=== PATIENT | female | born 1955 | race Caucasian/White ===

== ENCOUNTER 2025-01-12 12:24 | Inpatient (IN) | payer OTHER, SELFPAY ==
[2025-01-11 11:05] VITALS: BP 105/72
[2025-01-11 11:56] VITALS: BMI 21.3
--- NOTE | 2025-01-11 12:11 | ED.MUSCINJ ---
HPI-Injury
<Garry Cosby PA-C - Last Filed: 01/11/25 15:34>
General
Chief Complaint: Musculo-Skeletal Complaint
Source: patient
Exam Limitations: none
Time Seen by Provider: 01/11/25 11:52
History of Present Illness-Injury
Initial Injury comments:
69-year-old female presents with severe pain to the left side of her neck that radiates up the left side of her head into the front of her head. This has been going on getting worse over the past 2 weeks. She does see a pain management doctor for
her lower back. She is on morphine sulfate 15 mg every 8 hours. This is not helping her pain. She is having trouble swallowing and eating because of the pain. There is no associated vision change or dizziness. The pain is made worse when she
moves her head to the left and to the right. She denies a rash or fever. No known injury. No other complaints
Phy Exam
<Garry Cosby PA-C - Last Filed: 01/11/25 15:34>
Physical Exam
Physical Exam:
General: Well-appearing but uncomfortable appearin female no acute respiratory distress
HEENT normal cephalic pupils equal round reactive to light TMs normal
Heart: Regular rate and rhythm
Lungs: Clear no wheeze
Musculoskeletal exam: She is tender over the midline of the cervical spine as well as to the left paraspinous area. She has decreased range of motion to the neck especially with lateral rotation to the left
Skin is warm no rash
Injury Course
<Garry Cosby PA-C - Last Filed: 01/11/25 15:34>
Orders/Labs/Results
Orders:
Orders
01/11/25 12:12
Dexamethasone Sod Phosphate [Decadron] 10 mg IV NOW STA
diazePAM [Valium Injection] 5 mg IV NOW STA
01/11/25 12:17
Comprehensive Metabolic Panel Urgent
10/14/25 12:18
CRP [C-Reactive Protein] Urgent
Complete Blood Count/With Diff Urgent
Sed Rate [Erythrocyte Sed Rate] Urgent
01/11/25 13:48
HYDROmorphone [Dilaudid] 1 mg IV NOW STA
01/11/25 13:57
CT Cervical Spine W/ Iv Contra Urgent
Comment:
Reason For Exam: neck pain, elevated inflammatory markers, ?infecti
Abnormal Lab Results
01/11/25 01/11/25
12:17 12:18
WBC 11.8 H 10^3/uL
(4.8-10.8)
MCH 31.3 H pg
(27.0-31.0)
Plt Count 497 H 10^3/uL
(130-400)
Abs Immat Gran (auto) 0.1 H 10^3/uL
(0-0.05)
Absolute Neuts (auto) 8.3 H 10^3/uL
(1.4-6.5)
Absolute Monos (auto) 0.9 H 10^3/uL
(0.1-0.6)
Lymphocytes % 20.4 L %
(20.5-51.1)
ESR 82 H mm/hour
(0-20)
Sodium 134 L mmol/L
(135-145)
Glucose 139 H mg/dl
(70-99)
AST 41 H U/L
(14-36)
ALT 54 H U/L
(0-35)
Alkaline Phosphatase 360 H U/L
(38-126)
C-Reactive Protein 130.40 H mg/L
(0.0-10.00)
01/11/25 12:18
01/11/25 12:17
<Ricardo Ramsay MD - Last Filed: 01/11/25 15:42>
Orders/Labs/Results
Orders:
Orders
01/11/25 12:12
Dexamethasone Sod Phosphate [Decadron] 10 mg IV NOW STA
diazePAM [Valium Injection] 5 mg IV NOW STA
01/11/25 12:17
Comprehensive Metabolic Panel Urgent
01/11/25 12:18
CRP [C-Reactive Protein] Urgent
Complete Blood Count/With Diff Urgent
Sed Rate [Erythrocyte Sed Rate] Urgent
01/11/25 13:48
HYDROmorphone [Dilaudid] 1 mg IV NOW STA
01/11/25 13:57
CT Cervical Spine W/ Iv Contra Urgent
Comment:
Reason For Exam: neck pain, elevated inflammatory markers, ?infecti
Abnormal Lab Results
01/11/25 01/11/25
12:17 12:18
WBC 11.8 H 10^3/uL
(4.8-10.8)
MCH 31.3 H pg
(27.0-31.0)
Plt Count 497 H 10^3/uL
(130-400)
Abs Immat Gran (auto) 0.1 H 10^3/uL
(0-0.05)
Absolute Neuts (auto) 8.3 H 10^3/uL
(1.4-6.5)
Absolute Monos (auto) 0.9 H 10^3/uL
(0.1-0.6)
Lymphocytes % 20.4 L %
(20.5-51.1)
ESR 82 H mm/hour
(0-20)
Sodium 134 L mmol/L
(135-145)
Glucose 139 H mg/dl
(70-99)
AST 41 H U/L
(14-36)
ALT 54 H U/L
(0-35)
Alkaline Phosphatase 360 H U/L
(38-126)
C-Reactive Protein 130.40 H mg/L
(0.0-10.00)
01/11/25 12:18
01/11/25 12:17
<Garry Cosby PA-C - Last Filed: 01/11/25 15:34>
MDM/Problems Addressed
Differential Diagnosis Includes:
Neck pain radiating to the left side of the head. Consider radiculopathy. No rashes suggest shingles. Consider occipital neuralgia or temporal arteritis. Will check inflammatory markers basic labs and CT.
<Garry Cosby PA-C - Last Filed: 01/11/25 15:34>
*Pulse Oximetry
SaO2: 100
Oxygen Mode of Delivery: Room air
Patient hypoxic: no
*Critical Care Note
Total Time (30-74mins, 75-104mins- exclusive of procedures): Not Applicable
<Garry Cosby PA-C - Last Filed: 01/11/25 15:34>
Update Note
Update Note:
Pain is unrelenting here. Only mild improvement after medication. CT of cervical spine with IV contrast was ordered which is negative for deep space infection. Cannot ascertain discitis versus osteomyelitis on CT. Inflammatory markers including
sed rate of 82 and CRP of 130 concerning. Discussed with emergency room attending. Will admit to hospital for further treatment and evaluate
ED Attending Note
<Garry Cosby PA-C - Last Filed: 01/11/25 15:34>
-
Portions of this chart may have been created with voice recognition software.� Occasional wrong word or��sound alike� substitutions may have occurred due to the inherent limitations of voice recognition software.
<Ricardo Ramsay MD - Last Filed: 01/11/25 15:42>
ED Attending Note
Patient seen and examined by attending physician: Yes
I performed the substantive portion of visit, reviewed & personally made and approve the management plan that is documented in note by myself or BRIGIDA.: Yes
ED Attending Note:
69-year-old female 2 weeks of left posterior neck pain. Started antibiotics for enlarged lymph nodes. No distal numbness tingling or weakness. Some pain with swallowing. Pain does radiate up to the back of the neck.
On exam patient is nontoxic but appears uncomfortable. Stable vital signs. Tenderness of the left posterior paracervical area. No spinal tenderness. No swelling. Decreased lateral motion. TMs clear. Pharynx clear. No drooling or stridor.
Change Release Manager are normal. Interosseous normal. Flexion extension of the wrist normal.
Patient not describing any bowel or bladder issues or lower extremity issues.
CT cervical spine with contrast unremarkable. Significant inflammatory elevation. Patient warrants admission for pain management further workup. Would have to consider discitis, epidural abscess, other inflammatory issue. However neurologically
intact at this time
Discharge Plan
Departure
Prescriptions:
No Action
morphine 15 mg Tablet
15 mg PO BID
Referrals:
Dwayne Zimmerman MD [Family Provider, Internal Medicine]
Interventions
Interventions:
*Risk Screen - Suicide Last Done: 01/11/25 11:05
*General Assessment Last Done: 01/11/25 11:05
ED-Musculoskeletal Assessment Last Done: 01/11/25 11:56
Discharge Date and Time
Print Language: PORTUGUESE
[2025-01-11] MEDS: VALIUM INJECTION 5 MG IV (12:18)
[2025-01-11] MEDS: DECADRON 10 MG IV (12:18)
[2025-01-11 12:42] LABS: Hematocrit 40.8 % (37.0-47.0); Hemoglobin 14.3 g/dL (12.0-16.0); Mean Corp Hgb Conc. 35.0 g/dL (33.0-37.0); Mean Corpuscular Volume 89.3 fL (81.0-99.0); Nucleated Red Blood Cells % 0 %; Platelet Count 497 10^3/uL (130-400); Red Cell Dist. Width 11.9 % (11.5-14.5)
[2025-01-11 13:07] LABS: ALT (SGPT) 54 U/L (0-35); AST (SGOT) 41 U/L (14-36); Albumin 4.6 g/dl (3.5-5.0); Alkaline Phosphatase 360 U/L (38-126); Blood Urea Nitrogen 12 mg/dl (7-17); Calcium 9.6 mg/dl (8.4-10.2); Carbon Dioxide 27 mmol/L (22-30); Chloride 98 mmol/L (98-107); Estimated Creatinine Clearance 67 ml/min; Glucose 139 mg/dl (70-99); Potassium 4.0 mmol/L (3.5-5.1); Sodium 134 mmol/L (135-145); Total Protein 7.9 g/dl (6.3-8.2); eGFR > 60.00
[2025-01-11 13:30] LABS: C-Reactive Protein 130.40 mg/L (0.0-10.00)
[2025-01-11 13:50] VITALS: BP 134/46
[2025-01-11] MEDS: DILAUDID 1 MG IV (13:53)
--- NOTE | 2025-01-11 15:36 | HPS.HSE ---
Family Physician
-
Family Physician: Dwayne Zimmerman
Chief Complaint
-
severe neck pain radiating up to head
History of Present Illness
Patient is a 69-year-old female with past medical history significant for hypertension and chronic back pain who presented to [facility] ED for evaluation of severe neck pain radiating up to head. Patient reports pain starts on posterior and left side of
neck and radiates up through entire head. Patient reports is is sharp, stabbing and is constant. Pain has been present with worsening over the past two weeks. When it first started she went to see primary care provider who ordered a Z-pack that she
finished on Friday01/07/2025. She does report swollen glands on left side of neck with low grad fevers with T max 99.2. She denies any numbness, tingling, radiating down, cough or shortness of breath.
Medical History
Past Medical History
Past Medical History: Reports Other
Additional Past Medical History:
hypertension
chronic back pain
Past Surgical History: Reports Other
Additional Past Surgical History:
tonsillectomy
cholecystecotmy
Social History
Tobacco: Former Smoker (stopped 2 weeks ago, was smokin 0.5 pack per day)
Alcohol: None
Drug: None
Family History
Family History: Other (Father: CAD; Mother: DM)
Allergies / Home Medications
Allergies reflects when Allergies were last updated in [facility].
Home Medications with original date entered in [facility]
Allergy/Medication List:
Allergies
Allergy/AdvReac Type Severity Reaction Status Date / Time
NSAIDS (Non-Steroidal Allergy Unknown Verified 01/11/25 11:06
Anti-Inflamma
Sulfa (Sulfonamide Allergy Unknown Verified 01/11/25 11:06
Antibiotics)
Home Medications
acetaminophen 325 mg tablet (Tylenol) 650 mg PO TID mild pain 01/11/25
gabapentin 100 mg capsule 200 mg PO HS Neurological Condition 01/11/25
morphine 15 mg immediate release tablet 15 mg PO TID serve pain 01/11/25
propranolol 10 mg tablet 10 mg PO QID 01/11/25
Review of Systems
-
History Source: Patient
Constitutional: Reports Fever; Denies Chills
EENT: Reports Other (severe stabbing pain left and posterior neck radiating up to entire head ); Denies Sore Throat
Respiratory: Denies Cough, Hemoptysis or Trouble Breathing
Cardiac: Denies Chest Pain, Diaphoresis, Palpitations or Syncope
Abdomen/GI: Denies Abdominal Pain, Nausea, Vomiting or Diarrhea
: Denies Dysuria, Frequency, Incontinence, Difficulty Voiding or Urgency
Musculoskeletal: Denies Joint Pain
Skin: Denies Itching
Neurological: Reports Headache; Denies Dizzy, Weakness or Numbness
Endocrine: Denies Polyuria or Polydipsia
Hematologic/Lymphatic: Denies Bleeding
Physical Exam
Vital Signs
Vital Signs
Temp Pulse Resp BP Pulse Ox
98.9 F 80 18 134/46 99
01/11/25 11:05 01/11/25 13:50 01/11/25 13:50 01/11/25 13:50 01/11/25 13:50
Physical Exam
General: Well Developed, Well Nourished and Conversant
HEENT: NormoCephalic, Moist mucous membranes, PERRLA, Nose Appears Normal and Ears Appear Normal
Respiratory: Clear and Non Labored Respirations; No Wheezes, Rales, Rhonchi or Crackles
Cardiac: S1/S2 and Regular Rhythm; No Murmur, Rub or Gallop
GI: Soft, Non Tender, Non Distended and Normal Bowel Sounds
Musculoskeletal: No Clubbing, No Cyanosis, No Edema and Other (She is tender over the midline of the cervical spine as well as to the left paraspinous area. She has decreased range of motion to the neck especially with lateral rotation to the left)
Skin: Warm and IV/Catheter Site
Neuro: Awake and AO x 3
Psych: Calm and Intact Judgment/Insight
Laboratory Results
-
01/11/25 12:18
01/11/25 12:17
Laboratory Results
Total Bilirubin 0.5 mg/dl (0.2-1.3) 01/11/25 12:17
AST 41 U/L (14-36) H 01/11/25 12:17
ALT 54 U/L (0-35) H 01/11/25 12:17
Alkaline Phosphatase 360 U/L (38-126) H 01/11/25 12:17
Data Reviewed
-
CT Scan: Report Reviewed by me (C-Spine: No findings to suggest well-formed abnormal focal fluid collection about the paracervical spine soft tissues bilaterally. Evaluation for disc herniation markedly limited with this imaging modality,
especially without intrathecal contrast. Evaluation for discitis markedly limited with this)
Lab Data: Labs Reviewed by me (WBC 11.8, Na+ 134, AST 41, ALT 54, Alk Phos 360, CRP 130.40)
Impression/Plan
-
IMPRESSION/PLAN:
#severe posterior and left-sided neck/head pain 2/2 discitis vs. osteomyelitis vs. abscess vs. injury
WBC 11.8, Na+ 134, AST 41, ALT 54, Alk Phos 360, CRP 130.40
C-Spine CT: No findings to suggest well-formed abnormal focal fluid collection about the paracervical spine soft tissues bilaterally.
Evaluation for disc herniation markedly limited with this imaging modality, especially without intrathecal contrast.
Evaluation for discitis markedly limited with this imaging modality. Evaluation for epidural abscess cannot be assessed with this imaging modality. MRI with contrast would be necessary.
- Admit to med/surg
- MRI c-spine tomorrow
- continue home pain regimen
- Toradol 15mg q8
- prednisone 40mg daily
- Protonix 40mg daily
#chronic pain
- continue acetaminophen, gabapentin and morphine
#mitral valve prolapse
- continue propranolol
Code status: full code
DVT prophylaxis: lovenox sq
--- NOTE | 2025-01-11 16:54 | CM ---
Chart Reviewed and spoke with patient and at bedside
HODGES reviewed and signed at 16:45
Lives in a 2 story home with . 2 [address] with 1st floor bath room
Has a walker at home but per she is independent and walks without assistive device.
PCP Dr. Dwayne Spencer
Has RX plan
Pharmacy [facility] in [place]
no hx of VN nor SNF
CM will continue to follow for any dcp needs
--- NOTE | 2025-01-11 16:55 | W.PN.UPDATE ---
Update Note
Progress Note Update
I saw and examined the patient.
The SOLUTIONS ENGINEER's note was reviewed and I agree with the note.
Patient is a 69-year-old female with past medical history of lumbar spinal degenerative joint disease, chronic pain and narcotic dependence, essential hypertension, neuropathy came to ER with ongoing neck pain with radiation to scalp for 2 weeks.
Patient was having slowly progressive symptoms over 2 weeks and was seen by primary care physician. Patient was having some discomfort in submandibular glands? And was provided Z-Romero. Patient did not have any improvement and came for further
evaluation in ER. At the time of visit patient somewhat distressed due to ongoing continuous pain. Patient has loss of appetite although not attributing it to nausea. Mainly patient having discomfort on opening the jaw sometime as well.
GEN: aox3
HEENT: moist mucus membrane, PERRLA/EOMI, no thryomegaly or LNpathy
Chest: Clear to auscultation
Heart: N s1/s2, RRR, no rub/mrumur/gallops
Abd: N BS, soft, nontender, nondistended, no organomegaly
Neuro: No motor or sensory deficits, bilateral symetric DTR
Ext: No cyanosis, Clubbing, edema
Cervical radiculopathy
Cervicogenic headache
- Patient describing pain radiating from posterior neck and going up on occipital/vertex area
- Patient have spinal degenerative joint disease although no history of major neck issues
- CTA neck in ER did not show any major structural issue
- An MRI C-spine has been ordered to rule out any spinal stenosis/foraminal stenosis
- Patient got IV Decadron 10 mg in the ER, maintain on prednisone 40 mg daily
- Patient already on morphine 15 mg 3 times daily maintain on
- As needed IV Dilaudid for breakthrough pain
- Maintain on IV Toradol 50 mg every 8 hour with Protonix for GI prophylaxis
Neuropathy
- Continue nighttime gabapentin
Essential hypertension
- Maintained on propranolol 10 mg 4 times daily
DVT prophylaxis -SCD
Full code
Total time spent : mins
I personally saw and examined the patient.
I have reviewed all diagnostic interpretations and treatment plans as written.
Time includes patient management by me, time spent at the patients bedside, time to review lab and imaging results, discussing patient care, documentation in the medical record, and time spent with the family or caregiver and discussing care plan
with RN/Consultants.
[2025-01-11] MEDS: TORADOL 15 MG IV (17:09)
[2025-01-11 18:50] VITALS: BP 114/62; BMI 20.8
[2025-01-11] MEDS: NSS 1000 IV (19:57)
[2025-01-11] MEDS: LOVENOX 40 MG SC (19:58)
[2025-01-11] MEDS: INDERAL 10 MG PO (19:58)
[2025-01-11] MEDS: DILAUDID 0.5 MG IV (21:13)
[2025-01-11] MEDS: NEURONTIN 200 MG PO (21:13)
[2025-01-11] MEDS: INDERAL PO (23:05)
[2025-01-11 23:16] VITALS: BP 105/56
[2025-01-12] MEDS: TORADOL IV (02:00)
--- NOTE | 2025-01-12 06:23 | W.PN.UPDATE ---
Update Note
Progress Note Update
Patient refusing IV ketorolac and requesting IV Dilaudid.
Ketorolac d/c'd. small dose of IV Dilaudid ordered. PO morphine encouraged.
[2025-01-12] MEDS: MORPHINE SULFATE 15 MG PO ×3 (06:25→21:14)
[2025-01-12 07:00] VITALS: BP 105/57
[2025-01-12 08:03] LABS: Hematocrit 32.4 % (37.0-47.0); Hemoglobin 11.7 g/dL (12.0-16.0); Mean Corp Hgb Conc. 36.1 g/dL (33.0-37.0); Mean Corpuscular Volume 89.3 fL (81.0-99.0); Platelet Count 405 10^3/uL (130-400); Red Cell Dist. Width 11.8 % (11.5-14.5)
[2025-01-12 08:36] LABS: Blood Urea Nitrogen 13 mg/dl (7-17); Calcium 8.7 mg/dl (8.4-10.2); Carbon Dioxide 24 mmol/L (22-30); Chloride 107 mmol/L (98-107); Estimated Creatinine Clearance 67 ml/min; Glucose 119 mg/dl (70-99); Potassium 4.9 mmol/L (3.5-5.1); Sodium 135 mmol/L (135-145); eGFR > 60.00
[2025-01-12] MEDS: INDERAL 10 MG PO ×3 (08:37→18:32)
[2025-01-12] MEDS: DELTASONE 40 MG PO (08:37)
[2025-01-12] MEDS: PROTONIX 40 MG PO (08:38)
[2025-01-12] MEDS: NSS 1000 IV (08:45)
[2025-01-12] MEDS: DILAUDID 0.25 MG IV ×4 (09:14→19:14)
--- NOTE | 2025-01-12 12:24 | W.PN.HOSP.TC ---
Today's Communication/Plan
-
maintain on current meds
added IV prn dialudid
await MRI c spine
Assessment / Plan
Assessment / Plan
CT c spine
No findings to suggest well-formed abnormal focal fluid collection about the paracervical spine soft tissues bilaterally.
Evaluation for disc herniation markedly limited with this imaging modality, especially without intrathecal contrast.
Evaluation for discitis markedly limited with this imaging modality. Evaluation for epidural abscess cannot be assessed with this imaging modality. MRI with contrast would be necessary.
Cervical radiculopathy
Cervicogenic headache
- Patient describing pain radiating from posterior neck and going up on occipital/vertex area
- Patient have spinal degenerative joint disease although no history of major neck issues
- CTA neck in ER did not show any major structural issue
- An MRI C-spine has been ordered to rule out any spinal stenosis/foraminal stenosis
- Patient got IV Decadron 10 mg in the ER, maintain on prednisone 40 mg daily
- Patient already on morphine 15 mg 3 times daily maintain on
- As needed IV Dilaudid for breakthrough pain
- Maintain on IV Toradol 50 mg every 8 hour with Protonix for GI prophylaxis
Neuropathy
- Continue nighttime gabapentin
Essential hypertension
- Maintained on propranolol 10 mg 4 times daily
DVT prophylaxis -SCD
Full code
Anticipated Discharge: 24 - 48 hours
Subjective/Interval History
-
Date of Service: January 12, 2025
Patient continues to have significant pain in neck radiating to scalp
No upper or lower extremity neurological symptoms
Able to tolerate pain medication without excessive sedation/nausea vomiting episode
Objective Data
-
Labs:
Laboratory Results
01/12/25
07:49
WBC 12.0 H
Hgb 11.7 L
Hct 32.4 L
Plt Count 405 H
Sodium 135
Potassium 4.9
Chloride 107
Carbon Dioxide 24
BUN 13
Creatinine 0.4 L
Glucose 119 H
Calcium 8.7
Vital Signs:
Vital Signs
Temp Pulse Resp BP Pulse Ox
98 F 60 12 105/57 96
01/12/25 07:00 01/12/25 07:00 01/12/25 07:00 01/12/25 07:00 01/12/25 07:00
Review of Systems
-
EENT: Reports Other (sev neck pain)
Respiratory: Reports No Symptoms
Cardiac: Reports No Symptoms
Abdomen/GI: Reports No Symptoms
Physical Exam
-
General: No Apparent Distress and Comfortable
HEENT: Negative Oxygen
Neuro: Awake, Alert, Oriented, No Motor Deficits and Nonfocal/Grossly Intact
Psych: Calm
[2025-01-12 15:00] VITALS: BP 126/74
--- NOTE | 2025-01-12 16:05 | CM ---
Reviewed chart. Met with pt and spouse. Pt is is obvious pain. Nurse made aware. Pain management is active. Pt is waiting to have MRI of C-spine. One MRI is not operational at this time so testing will be delayed. Pt and made aware.
Plan: Home with no needs
[2025-01-12] MEDS: LOVENOX 40 MG SC (18:32)
[2025-01-12] MEDS: NEURONTIN 200 MG PO (21:14)
[2025-01-12] MEDS: INDERAL PO (23:00)
[2025-01-12 23:17] VITALS: BP 101/43
[2025-01-13] MEDS: DILAUDID 0.25 MG IV ×6 (02:20→22:13)
[2025-01-13] MEDS: VALIUM INJECTION 5 MG IV (02:49)
[2025-01-13 07:30] VITALS: BP 148/66
[2025-01-13] MEDS: DELTASONE 40 MG PO (08:03)
[2025-01-13] MEDS: PROTONIX 40 MG PO (08:03)
[2025-01-13] MEDS: MORPHINE SULFATE 15 MG PO ×3 (08:04→21:01)
[2025-01-13] MEDS: INDERAL 10 MG PO ×4 (08:05→21:01)
[2025-01-13] MEDS: LIDOCAINE 4% PATCH 1 PATCH TOPICAL (12:28)
--- NOTE | 2025-01-13 14:51 | W.PN.HOSP.TC ---
Today's Communication/Plan
-
continue symptomatic care
Assessment / Plan
Assessment / Plan
CT c spine
No findings to suggest well-formed abnormal focal fluid collection about the paracervical spine soft tissues bilaterally.
Evaluation for disc herniation markedly limited with this imaging modality, especially without intrathecal contrast.
Evaluation for discitis markedly limited with this imaging modality. Evaluation for epidural abscess cannot be assessed with this imaging modality. MRI with contrast would be necessary.
MRI C spine
Multilevel mild degenerative changes of the cervical spine most pronounced at the C6/C7 level where there is a right subarticular disc extrusion. There is no significant spinal canal or neuroforaminal narrowing.
Small focus of edema within the left paraspinal musculature at the C1-C2 level which may represent a mild muscular strain.
Cervical radiculopathy
Cervicogenic headache
- Patient describing pain radiating from posterior neck and going up on occipital/vertex area
- Patient have spinal degenerative joint disease although no history of major neck issues
- CTA neck in ER did not show any major structural issue
- MRI C-spine report as above.
- Patient got IV Decadron 10 mg in the ER, maintain on prednisone 40 mg daily
- Patient already on morphine 15 mg 3 times daily maintain on
- As needed IV Dilaudid for breakthrough pain
- Maintain on IV Toradol 50 mg every 8 hour with Protonix for GI prophylaxis
- Heating pad and lidocaine patch added
Neuropathy
- Continue nighttime gabapentin
Essential hypertension
- Maintained on propranolol 10 mg 4 times daily
DVT prophylaxis -SCD
Full code
Patient continued to require IV pain medication. Continues to have significant neck pain.
Total time spent : 52 mins
Anticipated Discharge: 24 - 48 hours
Subjective/Interval History
-
Date of Service: January 13, 2025
Continues to have neck pain
Complaint some neck stiffness in the morning
No abdominal pain/nausea/constipation with narcotics use
Objective Data
-
Vital Signs:
Vital Signs
Temp Pulse Resp BP Pulse Ox
98.0 F 75 18 121/75 100
01/13/25 07:30 01/13/25 12:37 01/13/25 07:30 01/13/25 12:37 01/13/25 13:30
Review of Systems
-
Respiratory: Reports No Symptoms
Cardiac: Reports No Symptoms
Abdomen/GI: Reports No Symptoms
Physical Exam
-
General: No Apparent Distress and Comfortable
HEENT: Negative Oxygen
Neuro: Awake, Alert, Oriented, No Motor Deficits and Nonfocal/Grossly Intact
Psych: Calm
[2025-01-13 15:25] VITALS: BP 141/61
--- NOTE | 2025-01-13 17:40 | CM ---
Chart reviewed. Pt continues to require IV medication for cervical neck pain control
Plan: Home no needs
[2025-01-13] MEDS: LOVENOX 40 MG SC (17:55)
[2025-01-13] MEDS: NEURONTIN 200 MG PO (21:01)
[2025-01-13] MEDS: REMOVE LIDOCAINE PATCH 1 PATCH REMOVE (21:03)
[2025-01-13 23:39] VITALS: BP 107/48
[2025-01-14] MEDS: DILAUDID 0.25 MG IV ×3 (01:26→06:31)
[2025-01-14 07:50] VITALS: BP 144/60
[2025-01-14] MEDS: INDERAL 10 MG PO ×4 (07:54→21:07)
[2025-01-14] MEDS: PROTONIX 40 MG PO (07:54)
[2025-01-14] MEDS: DELTASONE 40 MG PO (07:54)
[2025-01-14] MEDS: LIDOCAINE 4% PATCH 1 PATCH TOPICAL (07:54)
[2025-01-14] MEDS: MORPHINE SULFATE 15 MG PO ×3 (07:55→21:06)
[2025-01-14] MEDS: MIRALAX 17 GRAMS PO (11:21)
[2025-01-14] MEDS: ROXICODONE 2.5 MG PO ×3 (11:22→23:08)
--- NOTE | 2025-01-14 12:21 | W.PN.HOSP.TC ---
Today's Communication/Plan
-
Escalating oral pain medication regimen
Dischargeable once pain controlled with oral meds
Assessment / Plan
Assessment / Plan
CT c spine
No findings to suggest well-formed abnormal focal fluid collection about the paracervical spine soft tissues bilaterally.
Evaluation for disc herniation markedly limited with this imaging modality, especially without intrathecal contrast.
Evaluation for discitis markedly limited with this imaging modality. Evaluation for epidural abscess cannot be assessed with this imaging modality. MRI with contrast would be necessary.
MRI C spine
Multilevel mild degenerative changes of the cervical spine most pronounced at the C6/C7 level where there is a right subarticular disc extrusion. There is no significant spinal canal or neuroforaminal narrowing.
Small focus of edema within the left paraspinal musculature at the C1-C2 level which may represent a mild muscular strain.
Cervical radiculopathy
Cervicogenic headache
- Patient describing pain radiating from posterior neck and going up on occipital/vertex area
- Patient have spinal degenerative joint disease although no history of major neck issues
- CTA neck in ER did not show any major structural issue
- MRI C-spine report as above.
- Patient got IV Decadron 10 mg in the ER, maintain on prednisone 40 mg daily
- Patient already on morphine 15 mg 3 times daily maintain on
- As needed IV Dilaudid for breakthrough pain
- Maintain on IV Toradol 50 mg every 8 hour with Protonix for GI prophylaxis
- Heating pad and lidocaine patch added
- Oxycodone 2-1/2 mg every 4 hours as needed ordered with goal of limiting IV Dilaudid use
Neuropathy
- Continue nighttime gabapentin
Essential hypertension
- Maintained on propranolol 10 mg 4 times daily
DVT prophylaxis -SCD
Full code
Patient continued to require IV pain medication. Continues to have significant neck pain.
Anticipated Discharge: Within 24 hours
Subjective/Interval History
-
Date of Service: January 14, 2025
Continues to have neck pain going up the scalp
No other issues reported
Objective Data
-
Vital Signs:
Vital Signs
Temp Pulse Resp BP Pulse Ox
97.6 F 70 18 144/60 95
01/14/25 07:50 01/14/25 07:54 01/14/25 07:50 01/14/25 07:54 01/14/25 07:50
I&O
01/13/25 01/14/25 01/15/25
06:59 06:59 06:59
Intake Total 240 / 240
Balance 240 / 240
Review of Systems
-
Respiratory: Reports No Symptoms
Cardiac: Reports No Symptoms
Abdomen/GI: Reports No Symptoms
Physical Exam
-
General: No Apparent Distress and Comfortable
HEENT: Negative Oxygen
Neuro: Awake, Alert, Oriented, No Motor Deficits and Nonfocal/Grossly Intact
Psych: Calm
[2025-01-14 15:27] VITALS: BP 113/67
--- NOTE | 2025-01-14 15:42 | CM ---
Addendum entered by Leni Garcia 01/14/25 15:46:
IMM given to patient and placed on chart. Pt will go home via car with spouse tomorrow,
Original Note:
REviewed chart. Met with pt and spouse. Pain management ongoing. Have added Oxycodone to help reduce the need for diluaded. Pt for tentative DC tomorrow
Plan: Home no needs
[2025-01-14] MEDS: LOVENOX 40 MG SC (17:08)
[2025-01-14] MEDS: REMOVE LIDOCAINE PATCH 1 PATCH REMOVE (21:06)
[2025-01-14] MEDS: NEURONTIN 200 MG PO (21:07)
[2025-01-14 23:27] VITALS: BP 157/72
[2025-01-15] MEDS: ROXICODONE 2.5 MG PO ×2 (06:04→11:34)
[2025-01-15] MEDS: TYLENOL 650 MG PO (06:09)
[2025-01-15 07:40] VITALS: BP 124/62
[2025-01-15] MEDS: INDERAL 10 MG PO (07:46)
[2025-01-15] MEDS: MORPHINE SULFATE 15 MG PO (07:46)
[2025-01-15] MEDS: MIRALAX PO (07:46)
[2025-01-15] MEDS: DELTASONE 40 MG PO (07:46)
[2025-01-15] MEDS: LIDOCAINE 4% PATCH 1 PATCH TOPICAL (07:46)
[2025-01-15] MEDS: PROTONIX 40 MG PO (07:46)
--- NOTE | 2025-01-15 15:39 | W.DCSUMMARY ---
Discharge Summary
Discharge Data
Date of Admission: 01/12/25
Date of Discharge: 01/15/25
-
Pending Results: No
Hospital Course
Discharging Physician : Dr Van Chávez
Disposition : To home
Primary care physician : Dr Dwayne Zimmerman
Principal Discharge diagnosis :
Cervical radiculopathy
Cervical paraspinal muscle strain
Chronic Discharge diagnosis :
Chronic pain and narcotic dependence
Spinal degenerative joint disease
Essential hypertension
Physical examination:
HEENT: Neck pain on movement,
Abd: N BS, soft, nontender, nondistended,
Neuro: No motor or sensory deficits, aox3
Ext: No edema
Hospital Course :
Patient is 69-year-old female with admission past medical history came to ER with new onset of neck pain which was going up the occipital scalp and in the vertex area. Patient denied of any recent fall/trauma. Does have history of chronic pain and
narcotic dependence which patient uses mainly for lumbar spinal issues. Patient was provided symptomatic care without much help. A CT C-spine done in ER did not show any acute issues. Patient was admitted to hospital for need of IV pain
medication. Patient was started on IV Toradol/Dilaudid with supportive therapy. Patient was continued on home dose of morphine. A follow-up MRI C-spine was done which showed signs of muscle strain/inflammation in paraspinal muscles at base of
skull. No overt spinal canal issues. Patient had slow recovery of symptoms over next 72 hours. After improvement patient was transition to short course of oral oxycodone on top of regular morphine dose. Patient provided instruction to follow-up
with orthopedic surgeon in the office as may benefit with local tender point injection for better symptom control.
Important imaging findings :
None
Procedure findings :
None
Discharge Plan
-
Patient Disposition: Home (Routine Discharge)
Discharge Diagnosis/Procedures: Cervicogenic headache, Neck pain
Condition: Fair
Diet: Regular
Activity: As tolerated
Driving Restrictions: No driving for 24 hours
Bathing Restrictions: OK to Shower
Referrals:
[facility] [Provider Group, Orthopedics]
Referral Note: Please call the office for new patient appointment for severe neck pain
Dwayne Zimmerman MD [Family Provider, Internal Medicine] - in one week
Prescriptions:
New
lidocaine 4 % Adhesive Patch,Medicated
1 patch topical DAILY Qty: 10 0RF
oxycodone 5 mg tablet
5 mg PO Q6H PRN (Reason: Sev pain) Qty: 15 0RF
Rx Instructions:
Take half table for mod pain
ibuprofen 600 mg tablet
600 mg PO TID Qty: 10 0RF
Rx Instructions:
DO NOT TAKE MORE THEN 3 DAYS
prednisone 20 mg tablet
40 mg PO DAILY Qty: 6 0RF
Continued
morphine 15 mg Tablet
15 mg PO TID
acetaminophen [Tylenol] 325 mg Tablet
650 mg PO TID
propranolol 10 mg Tablet
10 mg PO QID
gabapentin 100 mg Capsule
200 mg PO HS
Discharge Orders:
Discharge Patient (As Directed); Ordered 01/15/25
Ordered By: Van Chávez
Discharge Date and Time
Discharge Date/Time: 01/15/25 12:00
Print Language: SAMI
== END 2025-01-15 12:00 | disposition home or self-care (01) | DRG 552 ==
LOC: 4 EAST ACU 12:24
PROVIDERS: Nurse Practitioner Family; Physician Assistant; ADMITTING PHYSICIAN Hospitalist; EMERGENCY PHYSICIAN Emergency Medicine; FAMILY PHYSICIAN Internal Medicine
DX: M50.123 Cervical disc disorder at C6-C7 level with radiculopathy (principal); F11.20 Opioid dependence, uncomplicated; S16.1XXA Strain of muscle, fascia and tendon at neck level, initial encounter; G44.86 Cervicogenic headache; I34.1 Nonrheumatic mitral (valve) prolapse; X58.XXXA Exposure to other specified factors, initial encounter; I10 Essential (primary) hypertension; G62.9 Polyneuropathy, unspecified; G89.29 Other chronic pain; Z87.891 Personal history of nicotine dependence; Z79.899 Other long term (current) drug therapy
CPT/HCPCS: 72126; 72141; 80048; 80053; 85025; 85027; 85652; 86140; 96374; 96375; 99284; 99406

== ENCOUNTER 2025-01-25 14:57 | Inpatient (IN) | payer OTHER, SELFPAY ==
[2025-01-22] VITALS (7 sets, daily range): BP systolic 100–152; BP diastolic 52–110
--- NOTE | 2025-01-22 14:49 | ED.GENMED ---
History of Present Illness
<Sushma Aguiar STANDARDS ENGINEER - Last Filed: 01/23/25 20:09>
General
Chief Complaint: Headache
Source: patient and spouse
Exam Limitations: none
Time Seen by Provider: 01/22/25 14:11
Nursing documentation reviewed up to this point in time: agreed with
History of Present Illness
History of Present Illness:
69-year-old female with history of chronic low back pain followed by pain and spine, takes morphine which she has done for the last 12 years or so, also gabapentin 200 mg at bedtime. She has not follow-up appointment on 02/01 with her pain
management people. She is presenting with severe bilateral neck pain pointing to the base of her skull bilaterally or just behind the ears. Than a recent admission from 01/11 to she had CAT scan and MRI of the neck and 18 for severe neck pain.
She had CAT scan and MRI of the neck and C-spine and was diagnosed with cervical radiculopathy and cervical paraspinal muscle strain. She was discharged on lidocaine 4% patch, oxycodone 5 mg #15 tabs, prednisone 20 mg to take 40 mg a day for 3
days. She states these gave her little relief and ever since her discharge she has been in the same significant pain. She is presently moaning and crying in pain saying the pain goes from bilateral paraspinal muscles at the base of her skull, up
and around the top of her head, in her ears and 'even my face hurts.' She states she cannot deal with this pain anymore and she just wants to . She denies fever or chills. Denies N/V. She states this is the exact same pain she came in with on
previous admission
Past History
<Sushma Aguiar STANDARDS ENGINEER - Last Filed: 01/23/25 20:09>
Past History
ED Past Medical History: Other (chronic low back pain followed by [facility])
ED Past Surgical History: Cholecystectomy and Tonsilectomy
Social History
Personal:
Living: with family
Review of Systems
<Sushma Aguiar, STANDARDS ENGINEER - Last Filed: 01/23/25 20:09>
Review of Systems
Allergies reviewed?: Yes
All Other Systems: ROS reviewed and negative except as documented in HPI and ROS
Constitutional: Denies fever
EENT: Denies sore throat
Respiratory: Denies trouble breathing
Cardiac: Denies chest pain
ABD/GI: Denies abdominal pain, nausea or vomiting
: Denies dysuria or difficulty voiding
Musculoskeletal: Reports neck pain
Skin: Reports no symptoms
Neurological: Reports headache; Denies dizzy, weakness or numbness
Phy Exam
<Sushma Aguiar, STANDARDS ENGINEER - Last Filed: 01/23/25 20:09>
Physical Exam
Physical Exam:
GENERAL: Crying and moaning from neck and head pain A&Ox3.
CONSTITUTIONAL: Afebrile.
EYES: PERRL, conjunctiva injected from crying
ENMT: moist mucus membranes, Pharynx nl, TMs normal
RESPIRATORY: Regular respirations, nonlabored, lungs clear.
CARDIOVASCULAR: Regular rate and rhythm, no murmurs, no rubs.
GI: Soft, nontender
MUSCULOSKELETAL: Neck is supple. Tender to palpate bilateral Moves with ease. Well perfused.
SKIN: Warm, dry, pink
PSYCH: Normal mood and affect. Well kept, interactive and appropriate
NEUROLOGIC: Awake, alert and oriented. Speech clear. No focal neurological deficits
Course
<Sushma Aguiar, STANDARDS ENGINEER - Last Filed: 01/23/25 20:09>
Orders/Labs/Results
Orders:
Orders
01/22/25 14:45
CT Sinuses W/o Iv Contrast Urgent
Comment:
Reason For Exam: facial pain, ear pain
01/22/25 14:52
diazePAM [Valium Injection] 5 mg IV NOW STA
01/22/25 16:07
0.9% Sodium Chloride 500 ml [Nss] 500 ml IV BOLUS
HYDROmorphone [Dilaudid] 1 mg IV NOW STA
Ondansetron Injectable [Zofran] 4 mg IV NOW STA
01/22/25 16:20
Dexamethasone Sod Phosphate [Decadron] 10 mg IV NOW STA
01/22/25 16:59
CT Head & Neck Angio W/wo IV Urgent
Comment:
Reason For Exam: severe headache, neck pain
01/22/25 17:03
CRP [C-Reactive Protein] Urgent
Complete Blood Count/With Diff Urgent
Comprehensive Metabolic Panel Urgent
01/22/25 17:04
Sed Rate [Erythrocyte Sed Rate] Stat
01/22/25 19:24
Ketorolac [Toradol] 15 mg IV NOW STA
01/22/25 20:03
Admit/Transfer Patient As Directed
Co-Sign Provider:
Level of Care: Observation services
Assign to:: Medical/Surgical
Physician / Group: [facility]
Diagnosis: headache
PRN Pain Medication Management As Directed
May give lesser potent ordered pain med per pt: Yes
preference::
Protocol:: Medication orders for pain may be administered in a
manner that supports deferring to patient preference
when the pt is:
- Requesting an ordered lesser potent pain medication.
Least to most potent pain medications are defined
as: acetaminophen < NSAID < tramadol < opioids
(morphine, oxycodone, hydromorphone).
- Requesting a lesser dose of the same medication IF
ORDERED.
- Requesting a less intrusive route of administration
if both routes are prescribed by the provider (PO <
IV).
01/22/25 20:04
Code Status As Directed
Resuscitation Status: Full Code
01/22/25 20:22
Ketorolac [Toradol] 30 mg IV NOW STA
01/22/25 21:00
Flush (0.9% Sodium Chloride) [Flush (Nss)] See Dose Instructions IV PER PROTOCOL
01/23/25 00:04
Acetaminophen [Tylenol] 650 mg PO Q4HWA
Bisacodyl [Dulcolax] 10 mg RECTAL [id number] PRN
Docusate W/Senna [Senokot-S] 1 tablet PO BIDPRN PRN
Gabapentin [Neurontin] 200 mg PO HS
Mag Hydrox/Al Hydrox/Simeth [Maalox] 30 ml PO Q6HPRN PRN
Morphine Sulfate 15 mg PO TID
Ondansetron Injectable [Zofran] 4 mg IV Q6HPRN PRN
Oxycodone [Roxicodone] 5 mg PO Q4HPRN PRN
Polyethylene Glycol Powder [Miralax] 17 grams PO DAILYPRN PRN
Propranolol [Inderal] 10 mg PO QID
01/23/25 00:04
Activity As Directed
Activity Level: With Assistance
Pneumatic Compression Sleeves As Directed
Type: Knee high
Vital Signs As Directed
Frequency: Per unit guidelines
DX Deep Vein Thrombosis Video Routine
01/23/25 00:20
HYDROmorphone [Dilaudid] 1 mg IV Q4HPRN PRN
01/23/25 02:00
Ketorolac [Toradol] 30 mg IV Q8
01/23/25 05:54
Basic Metabolic Panel IN AM
Complete Blood Count/No Diff IN AM
01/23/25 Breakfast
Regular
At Your Request: Full Participation
Does patient need a safe tray?: No
01/23/25 08:00
Lidocaine [Lidocaine 4% Patch] 1 patch TOPICAL DAILY
Apply Lidocaine patch(s) to:: apply to posterior neck at base of skull
Pantoprazole [Protonix] 40 mg PO DAILY
Prednisone [Deltasone] 40 mg PO DAILY
Abnormal Lab Results
01/22/25 01/22/25
17:03 17:04
WBC 17.6 H 10^3/uL
(4.8-10.8)
Plt Count 570 H 10^3/uL
(130-400)
Abs Immat Gran (auto) 0.2 H 10^3/uL
(0-0.05)
Absolute Neuts (auto) 11.1 H 10^3/uL
(1.4-6.5)
Absolute Lymphs (auto) 4.8 H 10^3/uL
(1.2-3.4)
Absolute Monos (auto) 1.4 H 10^3/uL
(0.1-0.6)
Immature Gran % 1.0 H %
(0-0.5)
ESR 61 H mm/hour
(0-20)
Sodium 134 L mmol/L
(135-145)
Chloride 97 L mmol/L
(98-107)
ALT 42 H U/L
(0-35)
Alkaline Phosphatase 294 H U/L
(38-126)
C-Reactive Protein 76.30 H mg/L
(0.0-10.00)
01/22/25 17:03
01/22/25 17:03
Vital Signs
Initial and Last Documented VS:
Initial Vital Signs
Temp Pulse Resp BP Pulse Ox
98.4 F 71 16 121/85 98
01/22/25 12:46 01/22/25 12:46 01/22/25 12:46 01/22/25 12:46 01/22/25 12:46
Last Documented Vital Signs
Temp Pulse Resp BP Pulse Ox
98 F 67 18 128/58 98
01/23/25 15:00 01/23/25 15:00 01/23/25 15:00 01/23/25 15:00 01/23/25 15:00
Shrimp Trawler Captain consulted with Physician
Shrimp Trawler Captain consulted with physician?: Yes
Name of Physician Consulted: Claudette
<Sal Wilkins MD - Last Filed: 01/22/25 17:13>
Orders/Labs/Results
Orders:
Orders
01/22/25 14:45
CT Sinuses W/o Iv Contrast Urgent
Comment:
Reason For Exam: facial pain, ear pain
01/22/25 14:52
diazePAM [Valium Injection] 5 mg IV NOW STA
01/22/25 16:07
0.9% Sodium Chloride 500 ml [Nss] 500 ml IV BOLUS
HYDROmorphone [Dilaudid] 1 mg IV NOW STA
Ondansetron Injectable [Zofran] 4 mg IV NOW STA
01/22/25 16:20
Dexamethasone Sod Phosphate [Decadron] 10 mg IV NOW STA
01/22/25 16:59
CT Head & Neck Angio W/wo IV Urgent
Comment:
Reason For Exam: severe headache, neck pain
01/22/25 17:03
CRP [C-Reactive Protein] Urgent
Complete Blood Count/With Diff Urgent
Comprehensive Metabolic Panel Urgent
01/22/25 17:04
Sed Rate [Erythrocyte Sed Rate] Stat
01/22/25 19:24
Ketorolac [Toradol] 15 mg IV NOW STA
01/22/25 20:03
Admit/Transfer Patient As Directed
Co-Sign Provider:
Level of Care: Observation services
Assign to:: Medical/Surgical
Physician / Group: [facility]
Diagnosis: headache
PRN Pain Medication Management As Directed
May give lesser potent ordered pain med per pt: Yes
preference::
Protocol:: Medication orders for pain may be administered in a
manner that supports deferring to patient preference
when the pt is:
- Requesting an ordered lesser potent pain medication.
Least to most potent pain medications are defined
as: acetaminophen < NSAID < tramadol < opioids
(morphine, oxycodone, hydromorphone).
- Requesting a lesser dose of the same medication IF
ORDERED.
- Requesting a less intrusive route of administration
if both routes are prescribed by the provider (PO <
IV).
01/22/25 20:04
Code Status As Directed
Resuscitation Status: Full Code
01/22/25 20:22
Ketorolac [Toradol] 30 mg IV NOW STA
01/22/25 21:00
Flush (0.9% Sodium Chloride) [Flush (Nss)] See Dose Instructions IV PER PROTOCOL
01/23/25 00:04
Acetaminophen [Tylenol] 650 mg PO Q4HWA
Bisacodyl [Dulcolax] 10 mg RECTAL [id number] PRN
Docusate W/Senna [Senokot-S] 1 tablet PO BIDPRN PRN
Gabapentin [Neurontin] 200 mg PO HS
Mag Hydrox/Al Hydrox/Simeth [Maalox] 30 ml PO Q6HPRN PRN
Morphine Sulfate 15 mg PO TID
Ondansetron Injectable [Zofran] 4 mg IV Q6HPRN PRN
Oxycodone [Roxicodone] 5 mg PO Q4HPRN PRN
Polyethylene Glycol Powder [Miralax] 17 grams PO DAILYPRN PRN
Propranolol [Inderal] 10 mg PO QID
01/23/25 00:04
Activity As Directed
Activity Level: With Assistance
Pneumatic Compression Sleeves As Directed
Type: Knee high
Vital Signs As Directed
Frequency: Per unit guidelines
DX Deep Vein Thrombosis Video Routine
01/23/25 00:20
HYDROmorphone [Dilaudid] 1 mg IV Q4HPRN PRN
01/23/25 02:00
Ketorolac [Toradol] 30 mg IV Q8
01/23/25 05:54
Basic Metabolic Panel IN AM
Complete Blood Count/No Diff IN AM
01/23/25 Breakfast
Regular
At Your Request: Full Participation
Does patient need a safe tray?: No
01/23/25 08:00
Lidocaine [Lidocaine 4% Patch] 1 patch TOPICAL DAILY
Apply Lidocaine patch(s) to:: apply to posterior neck at base of skull
Pantoprazole [Protonix] 40 mg PO DAILY
Prednisone [Deltasone] 40 mg PO DAILY
Abnormal Lab Results
01/22/25 01/22/25
17:03 17:04
WBC 17.6 H 10^3/uL
(4.8-10.8)
Plt Count 570 H 10^3/uL
(130-400)
Abs Immat Gran (auto) 0.2 H 10^3/uL
(0-0.05)
Absolute Neuts (auto) 11.1 H 10^3/uL
(1.4-6.5)
Absolute Lymphs (auto) 4.8 H 10^3/uL
(1.2-3.4)
Absolute Monos (auto) 1.4 H 10^3/uL
(0.1-0.6)
Immature Gran % 1.0 H %
(0-0.5)
ESR 61 H mm/hour
(0-20)
Sodium 134 L mmol/L
(135-145)
Chloride 97 L mmol/L
(98-107)
ALT 42 H U/L
(0-35)
Alkaline Phosphatase 294 H U/L
(38-126)
C-Reactive Protein 76.30 H mg/L
(0.0-10.00)
01/22/25 17:03
01/22/25 17:03
Vital Signs
Initial and Last Documented VS:
Initial Vital Signs
Temp Pulse Resp BP Pulse Ox
98.4 F 71 16 121/85 98
01/22/25 12:46 01/22/25 12:46 01/22/25 12:46 01/22/25 12:46 01/22/25 12:46
Last Documented Vital Signs
Temp Pulse Resp BP Pulse Ox
98 F 67 18 128/58 98
01/23/25 15:00 01/23/25 15:00 01/23/25 15:00 01/23/25 15:00 01/23/25 15:00
<Sushma Aguiar STANDARDS ENGINEER - Last Filed: 01/23/25 20:09>
MDM/Problems Addressed
Differential Diagnosis Includes:
Acute sinusitis, cervicogenic headache, cervical radiculopathy,
MDM/Problems Addressed:
69-year-old female with history of chronic low back pain, She is presenting with severe bilateral neck pain pointing to the base of her skull bilaterally or just behind the ears. Than a recent admission from 01/11 to 01/15 She had CAT scan and
MRI of the neck and C-spine and was diagnosed with cervical radiculopathy and cervical paraspinal muscle strain. She was discharged on lidocaine 4% patch, oxycodone 5 mg #15 tabs, prednisone 20 mg to take 40 mg a day for 3 days. She states these
gave her little relief and ever since her discharge she has been in the same significant pain. She is presently moaning and crying in pain saying the pain goes from bilateral paraspinal muscles at the base of her skull, up and around the top of her
head, in her ears and 'even my face hurts.' She states she cannot deal with this pain anymore and she just wants to . She denies fever or chills. Denies N/V. She states this is the exact same pain she came in with on previous admission.
Followed by pain and spine, for her chronic low back pain, takes morphine which she has done for the last 12 years or so, also gabapentin 200 mg at bedtime. She has follow-up appointment on 02/01 with [facility] management.
She states her PCP told her to come here for a sinus CT and ENT evaluation.
Records reviewed:
Patient had negative CTA in ER on 01/14, had MRI of C-spine which was consistent with mild DJD, no spinal canal or neuroforaminal narrowing small focus of edema which could represent muscular strain
She was referred to [facility] for follow up which she has not done
Some relief after IV Valium
is demanding she be admitted for pain control as 'she's been like this for weeks. ' 'I can't handle her at home like this.'
Pt given Dilaudid, Decadron for pain
Dr. Wilkins consulted and in to evaluate, will assume care from this point.
<Sushma Aguiar NP - Last Filed: 01/23/25 20:09>
*Pulse Oximetry
SaO2: 98
Oxygen Mode of Delivery: Room air
Patient hypoxic: no
*Critical Care Note
Total Time (30-74mins, 75-104mins- exclusive of procedures): Not Applicable
ED Attending Note
<Sushma Aguiar NP - Last Filed: 01/23/25 20:09>
-
Portions of this chart may have been created with voice recognition software.� Occasional wrong word or��sound alike� substitutions may have occurred due to the inherent limitations of voice recognition software.
<Sal Wilkins MD - Last Filed: 01/22/25 17:13>
ED Attending Note
Patient seen and examined by attending physician: Yes
ED Attending Note:
I have seen and evaluated the patient with a [id number] encounter. I have spoken to the advance practicer provider and involved in the medical history, the physical exam, medical decision making.
Evaluation and management service: agree unless noted differently below.
Results interpretation: agree unless noted differently below.
Focused HPI: 69-year-old female with no significant chronic medical issues presents to the ER for evaluation of headache and neck pain. Patient reports that symptoms have been ongoing for nearly a month now but she feels they are progressing. She
reports that initially she had a very mild sore throat with 'swollen glands' that resolved relatively quickly but shortly thereafter developed quite severe pain in the back of her neck radiating up to the back of her head. She says that since that
time she has had continued severe neck pain to the point that is limiting her function at home. She says the pain is so severe that she is not eating. She says that now the pain radiates from the neck to the back of her head towards her frontal
sinuses. She says she has pain with movement of her jaw. She has pain with any attempted movement of the neck. She denies any weakness or numbness in the extremities. She denies any change in her vision. She denies any trauma to the head or
neck. She has never had similar symptoms in the past although she does have chronic degenerative disease in the back for which she follows with pain management for which she takes oral morphine 15 mg 3 times daily. She was initially seen for this
neck pain 01/11 in the ER here�CT of the cervical spine showed no acute abnormalities and she was admitted for intractable pain. During that admission she had an MRI that suggested a muscle strain but no other acute issues. She was treated with
NSAIDs and opioids, steroids and was ultimately discharged. She was told to follow-up with orthopedist. She says she has an appointment scheduled with her pain management doctor as well as her primary doctor but has not yet scheduled with an
orthopedist. She says that since discharge her pain has significantly worsened. She was trying to manage her symptoms with her normal pain medications at home but says that she has not been able to function due to pain, could not even get out of
bed today without significant assistance from her . Returned to the ER for further assessment.
Physical exam: Patient is awake and alert. She is sitting straight upright in bed and appears very uncomfortable. She has tenderness in his paraspinal region bilaterally in the cervical spine but no midline cervical tenderness. She has tenderness
of the mastoid processes bilaterally. She has mild tenderness of the frontal sinuses. She has no signs of trauma to the head. She has minimal range of motion of the neck before she has significant pain. She can rotate to approximately 10 degrees
before she is limited by pain. She is able to flex the neck but can extend without pain. On HEENT exam her ears are clear bilaterally, no swelling of the nasal turbinates noted. She has a midline uvula without edema, no tonsillar enlargement or
exudate, no tongue elevation. No palpable lymphadenopathy in the neck. Motor and sensory intact in her extremities.
Medical Decision Makin-year-old female returns to the ER for severe pain in the head and neck. She has pain radiating from the cervical spine towards the top of her head now towards the frontal sinuses as well. She describes the pain as
'excruciating' and says that is limiting her daily activity. She says she is not able to eat due to pain and even gets nauseated from time to time. Her vital signs are normal here. Her physical exam is as above. I think given the described
severity of her pain we need to reassess the diagnosis of muscular strain. She had a CT of her sinuses in triage which was negative for any acute abnormality. She recently had an MRI of the cervical spine. She has not yet had imaging of her
brain�I think at this point with severe symptoms as described she should have CTA head and neck to rule out any vascular issue and to get dedicated imaging of the brain. At this point the patient says that she cannot go home due to severe pain.
She received IV Dilaudid here with marginal improvement. Will also treat with IV Decadron. Will plan likely for readmission for intractable symptoms pending imaging.
Discharge Plan
Departure
Patient Disposition: Admit
Date of Disposition: 01/22/25
Time of Disposition: 19:26
Admit to doctor: Scarlett
Presentation/result/management discussed w/ accepting MD/DO: Hospitalist
Discharge Problem:
Intractable headache, Neck pain
Interventions
Interventions:
*Risk Screen - Suicide Last Done: 01/22/25 14:00
*General Assessment Last Done: 01/22/25 14:00
*Neglect/Abuse Screening Last Done: 01/22/25 14:00
*ED- Fall Risk Assessment Last Done: 01/22/25 14:00
*ED COVID-19 Vaccine History Last Done: 01/22/25 19:34
*ED Influenza Vaccine History Last Done: 01/22/25 19:34
*Nursing Disposition Last Done: 01/22/25 23:50
ED- Neurological Assessment Last Done: 01/22/25 14:00
Discharge Date and Time
Discharge Date/Time: 01/22/25 23:50
[2025-01-22] MEDS: VALIUM INJECTION 5 MG IV (15:05)
[2025-01-22] MEDS: ZOFRAN 4 MG IV (16:24)
[2025-01-22] MEDS: DECADRON 10 MG IV (16:24)
[2025-01-22] MEDS: DILAUDID 1 MG IV (16:24)
[2025-01-22 17:16] LABS: Hematocrit 43.1 % (37.0-47.0); Hemoglobin 14.5 g/dL (12.0-16.0); Mean Corp Hgb Conc. 33.6 g/dL (33.0-37.0); Mean Corpuscular Volume 91.9 fL (81.0-99.0); Nucleated Red Blood Cells % 0 %; Platelet Count 570 10^3/uL (130-400); Red Cell Dist. Width 12.4 % (11.5-14.5)
[2025-01-22 17:50] LABS: ALT (SGPT) 42 U/L (0-35); AST (SGOT) 24 U/L (14-36); Albumin 4.6 g/dl (3.5-5.0); Alkaline Phosphatase 294 U/L (38-126); Blood Urea Nitrogen 12 mg/dl (7-17); Calcium 9.7 mg/dl (8.4-10.2); Carbon Dioxide 26 mmol/L (22-30); Chloride 97 mmol/L (98-107); Glucose 85 mg/dl (70-99); Potassium 5.1 mmol/L (3.5-5.1); Sodium 134 mmol/L (135-145); Total Protein 7.8 g/dl (6.3-8.2); eGFR > 60.00
[2025-01-22 17:54] LABS: C-Reactive Protein 76.30 mg/L (0.0-10.00)
[2025-01-22] MEDS: NSS 500 IV (18:16)
[2025-01-22] MEDS: TORADOL 15 MG IV (19:35)
--- NOTE | 2025-01-22 19:51 | HPS.HSE ---
Family Physician
-
Family Physician: Dwayne Zimmerman
Chief Complaint
-
headache
History of Present Illness
69-year-old with past medical history significant for chronic back pain, narcotics dependence which she uses for lumbosacral back pain presenting again to the emergency department for persistent headache.
Patient was recently admitted with similar symptoms and was diagnosed with cervical radiculopathy and cervical paraspinal muscle strain. She did have an MRI of the C-spine at that time which showed muscle strain/inflammation in the paraspinal
muscles at the base of the skull. She was managed with IV Toradol and Dilaudid with supportive therapy and a prednisone taper.
She did improve and was transition to a short course of oral oxycodone and a regular morphine dose. She was instructed to follow-up with orthopedic surgeon for point injection at the base of the skull. However this was not clear to the family.
They did not make any follow-up appointment and when discharge medications ran out she started having pain again.
She reports the pain is sharp pain that starts at the base of the skull and radiates to the vertex, behind the eyes, and posterior auricular areas bilaterally. No known exacerbating or relieving factors. She has not been able to tolerate p.o.
secondary to the pain. She denies any focal logical deficits. She denies any nausea or vomiting. She denies having any fevers or chills. She denies any vision changes.
She reported that the pain started about a month ago after an episode of sore throat for which she was treated with Z-Romero.
In the emergency department she was afebrile, blood pressure was 106/64 with a pulse of 71 and she was satting 95% on room air.
White count was 17.6 with hemoglobin 14.5 and a plate count of 570. Electrolyte BUN/creatinine were normal. She does have elevated inflammatory markers now with a ESR of 63 and a CRP of 76.
She had a CT of the head and sinuses which shows no acute inflammation of the sinuses. Emphysematous changes noted in the lung apices. She had a CT of the head and neck which was negative for dissection, no evidence of significant carotid
atherosclerotic narrowing nor other findings.
Medical History
Past Medical History
Past Medical History: Reports Other
Additional Past Medical History:
hypertension
chronic back pain
Past Surgical History: Reports Other
Additional Past Surgical History:
tonsillectomy
cholecystecotmy
Social History
Tobacco: Former Smoker (stopped 2 weeks ago, was smokin 0.5 pack per day)
Alcohol: None
Drug: None
Family History
Family History: Other (Father: CAD; Mother: DM)
Allergies / Home Medications
Allergies reflects when Allergies were last updated in [facility].
Home Medications with original date entered in [facility]
Allergy/Medication List:
Allergies
Allergy/AdvReac Type Severity Reaction Status Date / Time
NSAIDS (Non-Steroidal Allergy Nausea / Verified 01/22/25 12:48
Anti-Inflamma Vomiting-ABD
discomfort
Sulfa (Sulfonamide Allergy Unknown Verified 01/22/25 12:48
Antibiotics)
Home Medications
acetaminophen 325 mg tablet (Tylenol) 650 mg PO TID mild pain 01/11/25
gabapentin 100 mg capsule 200 mg PO HS Neurological Condition 01/11/25
morphine 15 mg immediate release tablet 15 mg PO TID serve pain 01/11/25
propranolol 10 mg tablet 10 mg PO QID Mitral Valve Prolapse 01/11/25
ibuprofen 600 mg tablet 600 mg PO TID #10 tabs 01/15/25
lidocaine 4 % topical patch 1 patch topical DAILY Apply to back of neck #10 ea 01/15/25
oxycodone 5 mg tablet 5 mg PO Q6H PRN Sev pain #15 tabs 01/15/25
prednisone 20 mg tablet 40 mg (2 x 20 mg) PO DAILY #6 tabs 01/15/25
Review of Systems
-
History Source: Patient
Constitutional: Reports Fever; Denies Chills
EENT: Reports Other (severe stabbing pain left and posterior neck radiating up to entire head ); Denies Sore Throat
Respiratory: Denies Cough, Hemoptysis or Trouble Breathing
Cardiac: Denies Chest Pain, Diaphoresis, Palpitations or Syncope
Abdomen/GI: Denies Abdominal Pain, Nausea, Vomiting or Diarrhea
: Denies Dysuria, Frequency, Incontinence, Difficulty Voiding or Urgency
Musculoskeletal: Denies Joint Pain
Skin: Denies Itching
Neurological: Reports Headache; Denies Dizzy, Weakness or Numbness
Endocrine: Denies Polyuria or Polydipsia
Hematologic/Lymphatic: Denies Bleeding
Physical Exam
Vital Signs
Vital Signs
Temp Pulse Resp BP Pulse Ox
98.4 F 71 16 106/64 93
01/22/25 12:46 01/22/25 12:46 01/22/25 12:46 01/22/25 18:16 01/22/25 19:34
Physical Exam
General: Well Developed, Well Nourished and Conversant
HEENT: NormoCephalic, Moist mucous membranes, PERRLA, Nose Appears Normal and Ears Appear Normal
Respiratory: Clear and Non Labored Respirations; No Wheezes, Rales, Rhonchi or Crackles
Cardiac: S1/S2 and Regular Rhythm; No Murmur, Rub or Gallop
GI: Soft, Non Tender, Non Distended and Normal Bowel Sounds
Musculoskeletal: No Clubbing, No Cyanosis, No Edema and Other (She is tender over the midline of the cervical spine as well as to the left paraspinous area. She has decreased range of motion to the neck especially with lateral rotation to the left)
Skin: Warm and IV/Catheter Site
Neuro: Awake and AO x 3
Psych: Calm and Intact Judgment/Insight
Laboratory Results
-
01/22/25 17:03
01/22/25 17:03
Laboratory Results
Total Bilirubin 0.9 mg/dl (0.2-1.3) 01/22/25 17:03
AST 24 U/L (14-36) 01/22/25 17:03
ALT 42 U/L (0-35) H 01/22/25 17:03
Alkaline Phosphatase 294 U/L (38-126) H 01/22/25 17:03
Data Reviewed
-
CT Scan: Report Reviewed by me
MRI: Report Reviewed by me
Lab Data: Labs Reviewed by me
Old Records: Reviewed
Impression/Plan
-
IMPRESSION:
69-year-old female coming with persistent headache likely corresponding to her cervical paraspinal muscle strain/inflammation at the base of the skull. She denies any vision changes. Managed with acute pain medications in the ED but continues to
have intractable pain. CT head, CT A without anomaly. Recent MRI C-spine with inflammation/strain in paraspinal muscles at skull base.
PLAN:
Headache - Cervicogenic headache with pain radiating from posterior neck and going to the occipute. MRI C-spine is c/w with this. CTA neck shows no vascular anomaly. She does have elevated WBC likely secondary to recent steroid use. She also has
elevated inflammatory markers
- admit to med/surg
- s/p IV decadron again in ED, taper wtih 40mg daily prednisone for now
- continue her morphine 15mg tid
- iv dilaudid for breakthrough, toradol 30 q 8 hours
- taper dilaudid
- ppi prophylaxis
- lidocaine patch
- given persistent symptoms, elevated inflammatory markers, will consult neurology
- needs help with making outpatient orthopedic appointment for possible local injection
Neuropathy
- Continue nighttime gabapentin
Hypertension
- propranolol 10 mg 4 times daily
DVT prophylaxis -SCD
Code status - Full code
[2025-01-22] MEDS: TORADOL 30 MG IV (20:40)
[2025-01-23 00:05] VITALS: BP 129/60; BMI 20.9
[2025-01-23] MEDS: NEURONTIN 200 MG PO ×2 (00:34→21:34)
[2025-01-23] MEDS: MORPHINE SULFATE 15 MG PO ×4 (00:34→21:34)
[2025-01-23] MEDS: INDERAL PO ×2 (00:34→21:37)
[2025-01-23] MEDS: TYLENOL 650 MG PO (00:34)
[2025-01-23] MEDS: TORADOL 30 MG IV (02:58)
[2025-01-23] MEDS: TYLENOL PO ×5 (03:54→21:34)
[2025-01-23 07:00] VITALS: BP 103/55
[2025-01-23 07:23] LABS: Hematocrit 34.2 % (37.0-47.0); Hemoglobin 11.9 g/dL (12.0-16.0); Mean Corp Hgb Conc. 34.8 g/dL (33.0-37.0); Mean Corpuscular Volume 90.5 fL (81.0-99.0); Red Cell Dist. Width 12.0 % (11.5-14.5)
[2025-01-23 07:32] LABS: Blood Urea Nitrogen 17 mg/dl (7-17); Calcium 8.8 mg/dl (8.4-10.2); Carbon Dioxide 23 mmol/L (22-30); Chloride 101 mmol/L (98-107); Estimated Creatinine Clearance 67 ml/min; Glucose 197 mg/dl (70-99); Potassium 4.9 mmol/L (3.5-5.1); Sodium 130 mmol/L (135-145); eGFR > 60.00
--- NOTE | 2025-01-23 07:34 | W.PN.HOSP.TC ---
Today's Communication/Plan
-
Changed Toradol from scheduled to PRN
Maalox given, abdominal pain suspected from Prednisone and NSAIDs, discussed with Dr. Schroeder of GI
Can try other components of GI cocktail and continue PRN Maalox
No obstruction on AXR
Patient eating cheeseburger with fried onions and coffee
May need rheum curbside consultation
Assessment / Plan
Assessment / Plan
Physical Exam
General: Mild distress due to pain
HEENT: Normocephalic, Neck is supple. Moist mucous membranes
Respiratory: Clear to Auscultation Bilaterally
Cardiac: S1/S2 and Regular Rhythm
GI: Soft, Non Tender, Non Distended and Normal Bowel Sounds
Musculoskeletal: No Cyanosis. No Edema. Tenderness along the mandible angle bilaterally
Skin: Warm. Dry.
Neuro: Awake and AO x 3. Cranial nerves 2 through 12 grossly intact bilaterally. Sensation and strength grossly intact in the bilateral lower extremities.
Psych: Calm and Intact Judgment/Insight
Assessment/Plan
69-year-old female with past medical history significant for chronic back pain, narcotics dependence which she uses for lumbosacral back pain presented again to the emergency department for persistent headache. Patient was recently admitted with
similar symptoms and was diagnosed with cervical radiculopathy and cervical paraspinal muscle strain. She did have an MRI of the C-spine at that time which showed muscle strain/inflammation in the paraspinal muscles at the base of the skull. She was
managed with IV Toradol and Dilaudid with supportive therapy and Prednisone. She did improve and was transition to a short course of oral oxycodone and a regular morphine dose. She was instructed to follow-up with orthopedic surgeon for point
injection at the base of the skull. However patient did not make any follow-up appointment and when discharge medications ran out she started having pain again. She reports the pain is sharp pain that starts at the base of the skull and radiates to
the vertex, behind the eyes, and posterior auricular areas bilaterally. No known exacerbating or relieving factors. She has not been able to tolerate p.o. secondary to the pain. She denied any focal logical deficits. She denied any nausea or
vomiting. She denied having any fevers or chills. She denied any vision changes. She reported that the pain started about a month prior after an episode of sore throat for which she was treated with Z-Romero. In the emergency department, she was
afebrile, blood pressure was 106/64 with a pulse of 71 bpm and she was saturating 95% on room air. White count was 17.6 with hemoglobin 14.5 and a plate count of 570. Electrolyte BUN/creatinine were normal. She does have persistently elevated
inflammatory markers with a ESR of 63 and a CRP of 76. She had a CT of the head and sinuses which shows no acute inflammation of the sinuses. Emphysematous changes noted in the lung apices. She had a CT of the head and neck which was negative for
dissection, no evidence of significant carotid atherosclerotic narrowing nor other findings.
Headache and Neck Pain
Elevated Inflammatory Markers
- Cervicogenic headache with pain radiating from posterior neck and going to the occiput in setting of persistently (but decreasing) elevated inflammatory markers following a sore throat with lymphadenopathy ~1 month prior
- Per my [facility] [employer] communication with on-call neurologist Dr. Morrell, given patient's persistent headache and neck/upper spine symptoms: Dr. Morrell recommended MRI Brain and MRI C-spine both to be done on an urgent basis, to rule out intracranial
of epidural abscess
- Per neurology, can consider LP tomorrow if patient is not better
- Given reports of neck stiffness, recent URI+lymphadenopathy ~1 month prior and recent steroid use, consulted ID: no empiric antibiotics needed at this time, no concerns for meningitis
- Appreciate ID
- Consider rheumatology curbside consultation
- s/p IV decadron again in ED, continue with Prednisone for now -- patient refused the Prednisone on 01/23/25
- continue her morphine 15mg tid
- iv dilaudid for breakthrough, toradol -- although may need to limit Toradol given abdominal pain -- patient refused several doses of the Toradol on 01/23/25
- Continue PPI given abdominal pain suspected from NSAIDs and steroids recently
- lidocaine patch
- needs help with making outpatient orthopedic appointment for possible local injection
Leukocytosis
-Likely secondary to steroids
Abdominal Pain
- Suspected this is from Prednisone and NSAIDs recently
- Continue PPI
- No need for GI consult right now
- Abdominal X-Ray 01/23/25 with nonobstructive bowel gas pattern
- PRN Maalox is ordered -- patient received this on 01/23/25 and was having cheeseburger with fried onions and coffee
- If pain persists, can consider other components of GI cocktail: Viscous Lidocaine 2%, 15 mL PO Q3H prn heartburn, and Elixir Phenobarb/Hyoscy/Atropine/Scop 10 mL PO 1x dose
Neuropathy
- Continue nighttime gabapentin
Hypertension
- propranolol 10 mg 4 times daily
DVT prophylaxis -SCDs
Code status - Full code
Anticipated Discharge: 24 - 48 hours
Subjective/Interval History
-
Date of Service: January 23, 2025
Patient was seen and examined. She reported pain in her neck and head and also abdominal pain.
Objective Data
-
Labs:
Laboratory Results
01/23/25
05:54
WBC 11.7 H
Hgb 11.9 L
Hct 34.2 L
Plt Count Pending
Sodium 130 L
Potassium 4.9
Chloride 101
Carbon Dioxide 23
BUN 17
Creatinine 0.5 L
Glucose 197 H
Calcium 8.8
Vital Signs:
Vital Signs
Temp Pulse Resp BP Pulse Ox
97.8 F 61 18 129/60 96
01/23/25 00:05 01/23/25 00:05 01/23/25 00:05 01/23/25 00:05 01/23/25 00:05
I&O
01/22/25 01/23/25 01/24/25
06:59 06:59 06:59
Intake Total 0 / 0
Balance 0 / 0
[2025-01-23 07:45] LABS: Platelet Count 410 10^3/uL (130-400)
--- NOTE | 2025-01-23 07:55 | CON.NEURO ---
Consultation
Order
Date of Consultation: 01/23/25
Requesting Provider: Noe Mcgee MD
Reason for Consult: Cervicogenic headache, elevated inflammatory markers
Neurology Consultation Note.
HPI: This is a 69-year-old RH woman who presented to [facility] on 01/22/2025 with neck pain. Ms. Chapman endorses excruciating neck and head pain for the past month. The pain started with a sore throat and lymphadenopathy and
gradually worsened. The pain is positional and associated with neck stiffness. She tried 'everything' including antibiotics without relief. The patient reports to be on Morphine for 12 years and is under care of GLORIA Alexander at [facility]
and spine.
No reports of recent CAMILLE, change in vision, dysphagia, dysarthria, rash imbalance, sensorimotor deficits or history of inflammatory arthropathy.
ER VS: 121/85, 71, afebrile.
EKG: Not available
PDMP:Morphine Sulfate Ir 15 Mg 90 tablets filled in 11/12/2024, 12/10/2024, 01/07/2025
Oxycodone 5 mg 15 tablets filled in on 01/15/2025.
Private pay�17.
Labs: WBCs�17.6, platelets�570, CRP�132/76.3 ESR�61, sodium�134�130, glucose 85�197,
CTA head/neck-no significant stenosis, dissection or thrombosis.
C spine MRI wo vilma(01/13/2025) Multilevel mild degenerative changes of the cervical spine most pronounced at the C6/C7 level where there is a right subarticular disc extrusion. There is no significant spinal canal or neuroforaminal narrowing. Small
focus of edema within the left paraspinal musculature at the C1-C2 level which may represent a mild muscular strain.
PMH: HTN, chronic back pain, chronic opioid use.
PSH: Tonsillectomy, cholecystectomy
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
FH:Father: CAD; Mother: DM, SLE
All: NSAIDs, sulfas
ROS: General: Positive for 8-pound weight loss and decreased appetite.
HEENT: Negative for double vision or vision changes, negative for oral ulcers.
Gastrointestinal: Positive for stomach pain.
Neurological: Negative for tingling or numbness in hands.
General: Well developed. In no acute distress.
Cardio: Regular rate and rhythm without murmur. Extremities are without cyanosis or edema.
Neuro:
Mental Status: Alert, oriented to person, place, and date. Normal attention and recall. Good fund of knowledge. Follows complex requests across the midline. Comprehension, naming, and repetition intact. Immediate and delayed recall 3/3.
Cranial Nerves: Pupils are equally round and reactive to light. EOMs full. Visual clark full to confrontation. No ptosis. No nystagmus. V1-V3 intact to light touch and pinprick bilaterally, symmetric. Face symmetric. Normal hearing AU. The
palate elevated well. SCMs and traps 5/5. Tongue midline. No dysarthria.
Motor: Normal bulk and tone. No pronator or arm drift. Strength 5/5 throughout. No clonus.
Reflexes: 2+ throughout the upper extremities and knees. 2/2 in AJs. Plantar responses flexor bilaterally. Negative Josefa's bilateral.
Sensory: Normal vibration at the toes
Coordination: No dysmetria or tremor.
Gait: deferred
Assessment and Plan:
I. Subacute neck pain
II. Signa inflammationis elevata
III. Chronic pain syndrome
-Avoid heavy lifting
-Please obtain brain and C-spine MRI w/wo vilma
-Please follow-up blood cultures, Mg.
-Rheumatology consult
-Continue symptomatic management
I personally reviewed all radiology and labs along with past medical records pertinent to current medical problems. Total time spent in patient care is 60 minutes.
Thank you for allowing us to participate in the care of this patient. We will continue to follow. Please do not hesitate to contact us with any questions or concerns.
Subjective/Objective
Subjective Data
Date of Service: January 23, 2025
Objective Data
Vital Signs
Temp Pulse Resp BP Pulse Ox
36.6 C 61 18 129/60 96
01/23/25 00:05 01/23/25 00:05 01/23/25 00:05 01/23/25 00:05 01/23/25 00:05
Lab Results
01/23/25 05:54
01/23/25 05:54
Sodium 130 mmol/L (135-145) L 01/23/25 05:54
Potassium 4.9 mmol/L (3.5-5.1) 01/23/25 05:54
BUN 17 mg/dl (7-17) 01/23/25 05:54
Glucose 197 mg/dl (70-99) H 01/23/25 05:54
Calcium 8.8 mg/dl (8.4-10.2) 01/23/25 05:54
Patient Allergies
NSAIDS (Non-Steroidal Anti-Inflamma Allergy (Verified 01/22/25 12:48)
Nausea / Vomiting-ABD discomfort
Sulfa (Sulfonamide Antibiotics) Allergy (Verified 01/22/25 12:48)
Unknown
Medications
-
Active Medications
Generic Name Dose Route Start Last Admin
Trade Name Freq PRN Reason Stop Dose Admin
Acetaminophen 650 mg 01/23/25 00:04 01/23/25 03:54
Acetaminophen 325 Mg Tablet PO 02/20/25 00:03 Not Given
Q4HWA RALEIGH
Al Hydrox/Mg Hydrox/Simethicone 30 ml 01/23/25 00:04
Mag/Al/Simethicone Suspension 30 Ml Cup PO 02/20/25 00:03
Q6HPRN PRN
Heartburn
Bisacodyl 10 mg 01/23/25 00:04
Bisacodyl 10 Mg Rectal Suppository RECTAL 02/20/25 00:03
[id number] PRN
constipation
Gabapentin 200 mg 01/23/25 00:04 01/23/25 00:34
Gabapentin 100 Mg Capsule PO 02/20/25 00:03 200 mg
HS RALEIGH Administration
Hydromorphone HCl 1 mg 01/23/25 00:20
Hydromorphone 1 Mg/Ml Carpuject IV 02/06/25 00:19
Q4HPRN PRN
severe pain
Ketorolac Tromethamine 30 mg 01/23/25 02:00 01/23/25 02:58
Ketorolac 15 Mg/Ml Injection IV 01/28/25 01:59 30 mg
Q8 RALEIGH Administration
Lidocaine 1 patch 01/23/25 08:00
Lidocaine 4% Topical Patch TOPICAL 02/20/25 07:59
DAILY RALEIGH
Protocol
Morphine Sulfate 15 mg 01/23/25 00:04 01/23/25 00:34
Morphine 15 Mg Immediate Release Tablet PO 02/06/25 00:03 15 mg
TID RALEIGH Administration
Ondansetron HCl 4 mg 01/23/25 00:04
Ondansetron 4 Mg/2 Ml Vial IV 02/20/25 00:03
Q6HPRN PRN
nausea and vomiting
Oxycodone HCl 5 mg 01/23/25 00:04
Oxycodone 5 Mg Regular Release Tablet PO 02/06/25 00:03
Q4HPRN PRN
moderate pain
Pantoprazole Sodium 40 mg 01/23/25 08:00
Pantoprazole 40 Mg Delayed Release Tablet PO 02/20/25 07:59
DAILY RALEIGH
Polyethylene Glycol 17 grams 01/23/25 00:04
Polyethylene Glycol Powder 17 Grams Packet PO 02/20/25 00:03
DAILYPRN PRN
constipation
Prednisone 40 mg 01/23/25 08:00
Prednisone 20 Mg Tablet PO 02/20/25 07:59
DAILY RALEIGH
Propranolol HCl 10 mg 01/23/25 00:04 01/23/25 00:34
Propranolol 10 Mg Regular Release Tablet PO 02/20/25 00:03 Not Given
QID RALEIGH
Senna/Docusate Sodium 1 tablet 01/23/25 00:04
Docusate W/Senna (Nirmala-Colace) Tablet PO 02/20/25 00:03
BIDPRN PRN
constipation
Sodium Chloride 0 flush 01/22/25 21:00
Sodium Chloride 0.9% (Flush) Syringe IV 02/19/25 20:59
PER PROTOCOL RALEIGH
Home Medications
�Medication �Instructions �Recorded
acetaminophen 325 mg tablet 650 mg PO TID mild pain 01/11/25
(Tylenol)
gabapentin 100 mg capsule 200 mg PO HS Neurological Condition 01/11/25
morphine 15 mg immediate release 15 mg PO TID serve pain 01/11/25
tablet
propranolol 10 mg tablet 10 mg PO QID Mitral Valve Prolapse 01/11/25
ibuprofen 600 mg tablet 600 mg PO TID #10 tabs 01/15/25
lidocaine 4 % topical patch 1 patch topical DAILY Apply to 01/15/25
back of neck #10 ea
oxycodone 5 mg tablet 5 mg PO Q6H PRN Sev pain #15 tabs 01/15/25
prednisone 20 mg tablet 40 mg (2 x 20 mg) PO DAILY #6 tabs 01/15/25
Vital Signs and Labs
-
Vital Signs and Labs:
Vital Signs
Temp Pulse Resp BP Pulse Ox
36.6 C 61 18 129/60 96
01/23/25 00:05 01/23/25 00:05 01/23/25 00:05 01/23/25 00:05 01/23/25 00:05
Lab Results
01/23/25 05:54
01/23/25 05:54
Sodium 130 mmol/L (135-145) L 01/23/25 05:54
Potassium 4.9 mmol/L (3.5-5.1) 01/23/25 05:54
BUN 17 mg/dl (7-17) 01/23/25 05:54
Glucose 197 mg/dl (70-99) H 01/23/25 05:54
Calcium 8.8 mg/dl (8.4-10.2) 01/23/25 05:54
Medications
-
Medications:
Generic Name Dose Route Start Last Admin
Trade Name Freq PRN Reason Stop Dose Admin
Acetaminophen 650 mg 01/23/25 00:04 01/23/25 03:54
Acetaminophen 325 Mg Tablet PO 02/20/25 00:03 Not Given
Q4HWA RALEIGH
Al Hydrox/Mg Hydrox/Simethicone 30 ml 01/23/25 00:04
Mag/Al/Simethicone Suspension 30 Ml Cup PO 02/20/25 00:03
Q6HPRN PRN
Heartburn
Bisacodyl 10 mg 01/23/25 00:04
Bisacodyl 10 Mg Rectal Suppository RECTAL 02/20/25 00:03
[id number] PRN
constipation
Gabapentin 200 mg 01/23/25 00:04 01/23/25 00:34
Gabapentin 100 Mg Capsule PO 02/20/25 00:03 200 mg
HS RALEIGH Administration
Hydromorphone HCl 1 mg 01/23/25 00:20
Hydromorphone 1 Mg/Ml Carpuject IV 02/06/25 00:19
Q4HPRN PRN
severe pain
Ketorolac Tromethamine 30 mg 01/23/25 02:00 01/23/25 02:58
Ketorolac 15 Mg/Ml Injection IV 01/28/25 01:59 30 mg
Q8 RALEIGH Administration
Lidocaine 1 patch 01/23/25 08:00
Lidocaine 4% Topical Patch TOPICAL 02/20/25 07:59
DAILY RALE[place]
Protocol
Morphine Sulfate 15 mg 01/23/25 00:04 01/23/25 00:34
Morphine 15 Mg Immediate Release Tablet PO 02/06/25 00:03 15 mg
TID RALEIGH Administration
Ondansetron HCl 4 mg 01/23/25 00:04
Ondansetron 4 Mg/2 Ml Vial IV 02/20/25 00:03
Q6HPRN PRN
nausea and vomiting
Oxycodone HCl 5 mg 01/23/25 00:04
Oxycodone 5 Mg Regular Release Tablet PO 02/06/25 00:03
Q4HPRN PRN
moderate pain
Pantoprazole Sodium 40 mg 01/23/25 08:00
Pantoprazole 40 Mg Delayed Release Tablet PO 02/20/25 07:59
DAILY RALEIGH
Polyethylene Glycol 17 grams 01/23/25 00:04
Polyethylene Glycol Powder 17 Grams Packet PO 02/20/25 00:03
DAILYPRN PRN
constipation
Prednisone 40 mg 01/23/25 08:00
Prednisone 20 Mg Tablet PO 02/20/25 07:59
DAILY RALE[place]
Propranolol HCl 10 mg 01/23/25 00:04 01/23/25 00:34
Propranolol 10 Mg Regular Release Tablet PO 02/20/25 00:03 Not Given
QID RALEIGH
Senna/Docusate Sodium 1 tablet 01/23/25 00:04
Docusate W/Senna (Nirmala-Colace) Tablet PO 02/20/25 00:03
BIDPRN PRN
constipation
Sodium Chloride 0 flush 01/22/25 21:00
Sodium Chloride 0.9% (Flush) Syringe IV 02/19/25 20:59
PER PROTOCOL RALEIGH
Home Medications
-
Home Medications
acetaminophen 325 mg tablet (Tylenol) 650 mg PO TID mild pain 01/11/25
gabapentin 100 mg capsule 200 mg PO HS Neurological Condition 01/11/25
morphine 15 mg immediate release tablet 15 mg PO TID serve pain 01/11/25
propranolol 10 mg tablet 10 mg PO QID Mitral Valve Prolapse 01/11/25
ibuprofen 600 mg tablet 600 mg PO TID #10 tabs 01/15/25
lidocaine 4 % topical patch 1 patch topical DAILY Apply to back of neck #10 ea 01/15/25
oxycodone 5 mg tablet 5 mg PO Q6H PRN Sev pain #15 tabs 01/15/25
prednisone 20 mg tablet 40 mg (2 x 20 mg) PO DAILY #6 tabs 01/15/25
[2025-01-23] MEDS: TORADOL IV ×2 (09:07→15:22)
[2025-01-23] MEDS: LIDOCAINE 4% PATCH TOPICAL (09:07)
[2025-01-23] MEDS: INDERAL 10 MG PO ×3 (09:08→17:45)
[2025-01-23] MEDS: PROTONIX 40 MG PO (09:08)
--- NOTE | 2025-01-23 09:30 | PTCARENOTE ---
Dr. Chávez made aware pt. unable to take morning medications as she swallowed one pill and began to vomit bile. PRN Zofran given as ordered. Pt. resting in bed at this time, bed alarm on, call hoff within reach.
[2025-01-23] MEDS: VALIUM INJECTION 5 MG IV (11:05)
[2025-01-23] MEDS: DELTASONE PO (11:06)
[2025-01-23] MEDS: ZOFRAN 4 MG IV ×2 (12:56→19:07)
[2025-01-23] MEDS: DILAUDID 1 MG IV (12:56)
[2025-01-23 15:00] VITALS: BP 128/58
--- NOTE | 2025-01-23 16:34 | CON.ID ---
Consultation
-
Date/Time Consultation Requested: 01/23/25 13:17
Date/Time Consultation Performed: 01/23/25 16:35
Requesting Provider: Dr Mcgee
Performing Provider: Dr Godoy
Reason for Consultation: URI ~1 month prior,inflammatory markers high, some neck stiffness
Chief Complaint / Past History
Chief Complaint
headache
History of Present Illness
Ms Chapman is a 69 year old female with history notable for back pain with narcotic dependence who presents for persistent headache.
She reports severe bilateral neck pain at the base of the skull behind the ears. Pain is sharp, from the base of the skull to the vertex also behind the eyes and posterior auricular areas bilaterally. Reports that pain started with sore throat and
lymph nodes that gradually worsened. She was prescribed a z-pac which she took. No exacerbating or relieving factors. No fevers or chills. Not tolerating PO secondary to the pain. She had a recent admission 01/11 during which she had a MRI of
the neck showing possible paraspinal muscle strain. She was treated with lidocaine, oxycodone and 40 mg of prednisone x3 days, she reports no improvement.
Since arrival here she has been afebrile, bp stable, wbc initially 17.6, now 11.7, hgb 11.9, plt initially 570 then 410 a left shift is not present. na 134, cr 0.6, crp 76, a C spine MRI with and without contrast has been nonrevealing, MRI brain
showed no intracranial abnormality. She is on no antibiotics
Past History
Additional Past Medical History:
hypertension
chronic back pain
Additional Past Surgical History:
tonsillectomy
cholecystecotmy
Allergy History:
NSAIDS (Non-Steroidal Anti-Inflamma Allergy (Verified 01/22/25 12:48)
Nausea / Vomiting-ABD discomfort
Sulfa (Sulfonamide Antibiotics) Allergy (Verified 01/22/25 12:48)
Unknown
Social History
Tobacco: Former Smoker
Alcohol: None
Drug: None
Family History
Family History: Not Pertinent
Review of Systems
Review of Systems
Respiratory: Denies Cough, Hemoptysis or Trouble Breathing
Cardiac: Denies Chest Pain, Diaphoresis, Palpitations or Syncope
Abdomen/GI: Denies Abdominal Pain, Nausea, Vomiting or Diarrhea
: Denies Dysuria, Frequency, Incontinence, Difficulty Voiding or Urgency
Musculoskeletal: Denies Joint Pain
Skin: Denies Itching
Neurological: Reports Headache; Denies Dizzy, Weakness or Numbness
Endocrine: Denies Polyuria or Polydipsia
Hematologic/Lymphatic: Denies Bleeding
Vital Signs
Temp Pulse Resp BP Pulse Ox
97.4 F 64 12 103/55 100
01/23/25 07:00 01/23/25 07:00 01/23/25 07:00 01/23/25 07:00 01/23/25 07:00
Physical Exam
Physical Exam
Constitutional: No Acute Distress
Head: Other (supple neck, point tenderness along the angle of the jaw bilaterally)
Cardiovascular: Regular Rate and S1/S2; Negative Murmur or Rub
Pulmonary: Clear and Symmetric; Negative Wheezes, Rales or Rhonchi
Gastrointestinal: Soft, Non Tender, Non Distended and Normal Bowel Sounds
Skin: Warm and Dry; Negative Rash or Jaundice
Neurological: Awake, Alert, Oriented and Other (no photophobia)
Lab / Diagnostic Study Results
01/23/25 05:54
01/23/25 05:54
Abs Immat Gran (auto) 0.2 10^3/uL (0-0.05) H 01/22/25 17:03
Absolute Neuts (auto) 11.1 10^3/uL (1.4-6.5) H 01/22/25 17:03
Absolute Lymphs (auto) 4.8 10^3/uL (1.2-3.4) H 01/22/25 17:03
Absolute Monos (auto) 1.4 10^3/uL (0.1-0.6) H 01/22/25 17:03
Absolute Basos (auto) 0.1 10^3/uL (0-0.2) 01/22/25 17:03
Immature Gran % 1.0 % (0-0.5) H 01/22/25 17:03
Neutrophils % 62.8 % (42.2-75.2) 01/22/25 17:03
Lymphocytes % 27.2 % (20.5-51.1) 01/22/25 17:
Monocytes % 7.8 % (1.7-9.3) 01/22/25:
Eosinophils % 0.9 % (0-6) 01/22/25 17:03
Basophils % 0.3 % (0-2) 01/22/25 17:03
ESR 61 mm/hour (0-20) H 01/22/25 17:04
C-Reactive Protein 76.30 mg/L (0.0-10.00) H 01/22/25 17:03
Assessment / Plan
Severe Headache and Neck Pain - subacute
- pain has been present over 1 month, no james photophobia or difficulty flexing the neck
- no fevers, chills
- blood cultures were recommended by neurology - ordered
- leukocytosis on arrival likely related to recent steroids, already resolving
- would not recommend any empiric antibiotics
- MRI of the head and neck nonrevealing
- pain management per IM service
[2025-01-23] MEDS: MAALOX 30 ML PO (16:44)
[2025-01-23] MEDS: TUMS CHEWABLE TABLET 200 MG PO (21:34)
[2025-01-23 23:43] VITALS: BP 122/47
[2025-01-24] MEDS: ROXICODONE 5 MG PO ×3 (00:45→17:20)
[2025-01-24] MEDS: TYLENOL PO ×3 (01:13→23:54)
[2025-01-24 08:26] VITALS: BP 106/51
[2025-01-24] MEDS: INDERAL 10 MG PO ×4 (08:38→22:03)
[2025-01-24] MEDS: MORPHINE SULFATE 15 MG PO ×3 (08:39→22:03)
[2025-01-24] MEDS: LIDOCAINE 4% PATCH TOPICAL (08:39)
[2025-01-24] MEDS: PROTONIX 40 MG PO (08:40)
[2025-01-24] MEDS: TYLENOL 650 MG PO ×4 (08:40→20:12)
[2025-01-24] MEDS: DELTASONE PO ×2 (08:41→13:52)
[2025-01-24 08:47] LABS: Lipase 32 U/L (23-300)
[2025-01-24 08:51] LABS: ALT (SGPT) 22 U/L (0-35); AST (SGOT) 14 U/L (14-36); Albumin 3.4 g/dl (3.5-5.0); Alkaline Phosphatase 193 U/L (38-126); Blood Urea Nitrogen 15 mg/dl (7-17); Calcium 8.9 mg/dl (8.4-10.2); Carbon Dioxide 28 mmol/L (22-30); Chloride 105 mmol/L (98-107); Estimated Creatinine Clearance 67 ml/min; Glucose 104 mg/dl (70-99); Potassium 4.4 mmol/L (3.5-5.1); Sodium 133 mmol/L (135-145); Total Protein 6.1 g/dl (6.3-8.2); eGFR > 60.00
[2025-01-24 08:53] LABS: INR 0.97; PT 13.2 Sec (11.4-14.6)
[2025-01-24 09:00] LABS: Hematocrit 34.2 % (37.0-47.0); Hemoglobin 11.8 g/dL (12.0-16.0); Mean Corp Hgb Conc. 34.5 g/dL (33.0-37.0); Mean Corpuscular Volume 93.2 fL (81.0-99.0); Nucleated Red Blood Cells % 0 %; Platelet Count 466 10^3/uL (130-400); Red Cell Dist. Width 12.4 % (11.5-14.5)
--- NOTE | 2025-01-24 09:22 | W.PN.HOSP.TC ---
Today's Communication/Plan
-
continue symptomatic care for pain
will discuss with IR for possible steroid injection
Assessment / Plan
Assessment / Plan
69-year-old female with past medical history significant for chronic back pain, narcotics dependence which she uses for lumbosacral back pain presented again to the emergency department for persistent headache. Patient was recently admitted with
similar symptoms and was diagnosed with cervical radiculopathy and cervical paraspinal muscle strain. She did have an MRI of the C-spine at that time which showed muscle strain/inflammation in the paraspinal muscles at the base of the skull. She was
managed with IV Toradol and Dilaudid with supportive therapy and Prednisone. She did improve and was transition to a short course of oral oxycodone and a regular morphine dose. She was instructed to follow-up with orthopedic surgeon for point
injection at the base of the skull. However patient did not make any follow-up appointment and when discharge medications ran out she started having pain again. She reports the pain is sharp pain that starts at the base of the skull and radiates to
the vertex, behind the eyes, and posterior auricular areas bilaterally. No known exacerbating or relieving factors. She has not been able to tolerate p.o. secondary to the pain. She denied any focal logical deficits. She denied any nausea or
vomiting. She denied having any fevers or chills. She denied any vision changes. She reported that the pain started about a month prior after an episode of sore throat for which she was treated with Z-Romero. In the emergency department, she was
afebrile, blood pressure was 106/64 with a pulse of 71 bpm and she was saturating 95% on room air. White count was 17.6 with hemoglobin 14.5 and a plate count of 570. Electrolyte BUN/creatinine were normal. She does have persistently elevated
inflammatory markers with a ESR of 63 and a CRP of 76. She had a CT of the head and sinuses which shows no acute inflammation of the sinuses. Emphysematous changes noted in the lung apices. She had a CT of the head and neck which was negative for
dissection, no evidence of significant carotid atherosclerotic narrowing nor other findings.
1. Intractable neck pain
-Clinically behaving like cervicogenic headache with pain radiating from neck up to the scalp
-Repeat MRI brain/C-spine with and without count did not show any new abnormality, some changes of degenerative spine disease
-CRP elevated, although no signs concerning of vertebral osteomyelitis
- Neurology evaluated and help appreciated
-Patient has been resumed back on regimen of IV Dilaudid/oxycodone with scheduled home morphine
-Toradol also added to regimen
2. Leukocytosis
-Stable reactive versus steroid use related
-Patient had concern of sinusitis although sinus CT scan did not suggest anything
-Infection disease physician evaluated and recommended monitoring off of antibiotics
3. Abdominal pain
-Abdominal x-ray did not show any signs of obstruction
-Possible gastritis with NSAID use? Maintained on pantoprazole
-Further testing if patient has recurrent abdominal pain issues
4. Neuropathy
- Continue nighttime gabapentin
5. Essential Hypertension
- propranolol 10 mg 4 times daily
DVT prophylaxis -SCDs
Code status - Full code
Anticipated Discharge: 24 - 48 hours
Subjective/Interval History
-
Date of Service: January 24, 2025
Patient continues to complain neck pain on right paraspinal region
Denies of feeling headache overall scalp today
Remains very lethargic/tired and not interested in eating
Was having some abdominal pain yesterday without any nausea or vomiting, has improved today
Objective Data
-
Labs:
Laboratory Results
01/24/25 01/24/25
08:08 08:34
WBC 18.0 H
Hgb 11.8 L
Hct 34.2 L
Plt Count 466 H
PT 13.2
INR 0.97
Sodium 133 L
Potassium 4.4
Chloride 105
Carbon Dioxide 28
BUN 15
Creatinine 0.6
Glucose 104 H
Calcium 8.9
Total Bilirubin 0.3
AST 14
ALT 22
Alkaline Phosphatase 193 H
Vital Signs:
Vital Signs
Temp Pulse Resp BP Pulse Ox
97.5 F 61 18 110/51 98
01/24/25 08:26 01/24/25 08:38 01/24/25 08:26 01/24/25 08:38 01/24/25 08:26
I&O
01/23/25 01/24/25 01/25/25
06:59 06:59 06:59
Intake Total 0 / 0 480 / 480
Balance 0 / 0 480 / 480
Review of Systems
-
Respiratory: Reports No Symptoms
Cardiac: Reports No Symptoms
Abdomen/GI: Denies Abdominal Pain, Nausea or Vomiting
Physical Exam
-
General: No Apparent Distress and Comfortable
Musculoskeletal: No Edema
Neuro: Awake, Alert, Oriented, No Motor Deficits and Nonfocal/Grossly Intact
Psych: Calm
[2025-01-24 10:49] VITALS: BMI 20.9
[2025-01-24 11:27] LABS: Rheumatoid Agglutinin Less Than 10 IU (<10 IU)
--- NOTE | 2025-01-24 13:49 | CM ---
Patient seen bedside w/ spouse, initial assessment completed. Patient is a 69-year-old with past medical history significant for chronic back pain, narcotics dependence which she uses for lumbosacral back pain presenting again to the emergency
department for persistent headache.
Recent admission (01/12-01/15) for severe neck and hand pain
Patient resides w/ spouse in a 2ST[facility], 2 steps to enter from the outside. Patient has a 1st floor bathroom. Patient is independent w/ ambulation, has a RW but does not use per previous admission chart. No SNF/HC hx.
Address, point of contact and insurance verified
PCP: Dwayne Zimmerman
Pharmacy: [facility]
Patient admitted under obs services. HODGES form verbally reviewed, copy provided, copy on chart
Plan: Home, no needs anticipated
[2025-01-24 14:04] VITALS: BP 147/69; BP_SYST 58
--- NOTE | 2025-01-24 15:30 | TRANSFER ---
pt arrived from IR s/p lumbar puncture via stretcher. pt ambulated from stretcher to bed with standby assistance. VSS, bandaid CDI on lower middle back.
[2025-01-24 15:50] VITALS: BP 136/60
[2025-01-24 16:02] LABS: CSF Color Colorless
[2025-01-24 16:03] LABS: Red Cell Count/CSF 355 mm^3
[2025-01-24 16:06] LABS: White Cell Count/CSF 6 mm^3 (0-5)
[2025-01-24 16:51] LABS: CSF Color Colorless; CSF Tube # Clarity Clear; Red Cell Count/CSF 52 mm^3; White Blood Cell Count/CSF 4 mm^3 (0-5)
--- NOTE | 2025-01-24 17:01 | W.PN.NEURO.1 ---
Today's Communication / Plan
-
. MRI of the brain was done on 01/23/2025 that did not show acute intracranial abnormality.
. MRI of the cervical spine was done on 01/23/2025 that showed multilevel mild degenerative changes of the cervical spine without significant spinal canal or neuroforaminal narrowing.Unremarkable appearance of the cervical spinal cord without
abnormal enhancement.
. A lumbar puncture was done that showed 4 WBCs, glucose was 67 and protein was 44.
The patient does not appear to have an active central nervous system infection at this time. She has chronic headache and neck pain. Her symptoms have been going on for about a month. The patient does not have signs of meningeal irritation at
this time. The headache is also tolerable as per patient at this time. ID has seen the patient and recommended monitoring without the use of empiric antibiotics
The patient will benefit from a rheumatology consult.
Continue current pain medications.
Subjective/Objective
Subjective Data
Date of Service: January 24, 2025
The patient is a 69 years old female who presented to the hospital with neck pain along with headache the past month. The patient says that she is better today and says that she has a mild headache, also she says that she does not have neck
stiffness today but according to her the neck stiffness symptom can occur intermittently. The patient has a complaint of chronic pain and is being treated as an outpatient for it.
. MRI of the brain was done on 01/23/2025 that did not show acute intracranial abnormality.
. MRI of the cervical spine was done on 01/23/2025 that showed multilevel mild degenerative changes of the cervical spine without significant spinal canal or neuroforaminal narrowing.Unremarkable appearance of the cervical spinal cord without
abnormal enhancement.
. A lumbar puncture was done that showed 4 WBCs, glucose was 67 and protein was 44.
The patient does not appear to have an active central nervous system infection at this time. She has chronic headache and neck pain. Her symptoms have been going on for about a month. The patient does not have signs of meningeal irritation at
this time. The headache is also tolerable as per patient at this time. ID has seen the patient and recommended monitoring without the use of empiric antibiotics
The patient will benefit from a rheumatology consult.
Continue current pain medications.
I had a detailed discussion with the patient and her regarding the assessment and the management plan.
Will sign off. Please call if you have any question.
Neurologic examination:
The patient is alert and oriented x 3,
The cranial nerves II to XII are grossly intact,
Speech is clear,
She has antigravity strength in all 4 extremities,
She does not have limb ataxia.
Objective Data
Vital Signs
Temp Pulse Resp BP Pulse Ox
36.3 C 55 18 136/60 96
01/24/25 15:50 01/24/25 15:50 01/24/25 15:50 01/24/25 15:50 01/24/25 15:50
Lab Results
01/24/25 08:08
01/24/25 08:08
PT 13.2 Sec (11.4-14.6) 01/24/25 08:34
INR 0.97 01/24/25 08:34
Sodium 133 mmol/L (135-145) L 01/24/25 08:08
Potassium 4.4 mmol/L (3.5-5.1) 01/24/25 08:08
BUN 15 mg/dl (7-17) 01/24/25 08:08
Glucose 104 mg/dl (70-99) H 01/24/25 08:08
Calcium 8.9 mg/dl (8.4-10.2) 01/24/25 08:08
Ur Buprenorphine Negative (Negative) 01/23/25 18:40
Patient Allergies
NSAIDS (Non-Steroidal Anti-Inflamma Allergy (Verified 01/22/25 12:48)
Nausea / Vomiting-ABD discomfort
Sulfa (Sulfonamide Antibiotics) Allergy (Verified 01/22/25 12:48)
Unknown
Vital Signs and Labs
-
Vital Signs and Labs:
Vital Signs
Temp Pulse Resp BP Pulse Ox
36.3 C 55 18 136/60 96
01/24/25 15:50 01/24/25 15:50 01/24/25 15:50 01/24/25 15:50 01/24/25 15:50
Lab Results
01/24/25 08:08
01/24/25 08:08
PT 13.2 Sec (11.4-14.6) 01/24/25 08:34
INR 0.97 01/24/25 08:34
Sodium 133 mmol/L (135-145) L 01/24/25 08:08
Potassium 4.4 mmol/L (3.5-5.1) 01/24/25 08:08
BUN 15 mg/dl (7-17) 01/24/25 08:08
Glucose 104 mg/dl (70-99) H 01/24/25 08:08
Calcium 8.9 mg/dl (8.4-10.2) 01/24/25 08:08
Ur Buprenorphine Negative (Negative) 01/23/25 18:40
Medications
-
Active Medications
Generic Name Dose Route Start Last Admin
Trade Name Freq PRN Reason Stop Dose Admin
Acetaminophen 650 mg 01/23/25 00:04 01/24/25 15:59
Acetaminophen 325 Mg Tablet PO 02/20/25 00:03 650 mg
Q4HWA RALEIGH Administration
Al Hydrox/Mg Hydrox/Simethicone 30 ml 01/23/25 00:04 01/23/25 16:44
Mag/Al/Simethicone Suspension 30 Ml Cup PO 02/20/25 00:03 30 ml
Q6HPRN PRN Administration
Heartburn
Bisacodyl 10 mg 01/23/25 00:04
Bisacodyl 10 Mg Rectal Suppository RECTAL 02/20/25 00:03
[id number] PRN
constipation
Calcium Carbonate 200 mg 01/23/25 20:26 01/23/25 21:34
Calcium Antacid 200 Mg (Calcium Carbonate 500 Mg) Chew Tablet PO 02/20/25 20:25 200 mg
Q6HPRN PRN Administration
indigestion
Diazepam 5 mg 01/23/25 11:00 01/23/25 11:05
Diazepam 10 Mg/2 Ml Inj IV 02/20/25 10:59 5 mg
ONCE PRN Administration
30 MINUTES PRIOR TO MRI
Gabapentin 200 mg 01/23/25 00:04 01/23/25 21:34
Gabapentin 100 Mg Capsule PO 02/20/25 00:03 200 mg
HS RALEIGH Administration
Hydromorphone HCl 1 mg 01/23/25 00:20 01/23/25 12:56
Hydromorphone 1 Mg/Ml Carpuject IV 02/06/25 00:19 1 mg
Q4HPRN PRN Administration
BREAKTHROUGH pain
Ketorolac Tromethamine 15 mg 01/23/25 18:46
Ketorolac 15 Mg/Ml Injection IV 01/28/25 18:45
Q8HPRN PRN
severe pain
Lidocaine 1 patch 01/23/25 08:00 01/24/25 08:39
Lidocaine 4% Topical Patch TOPICAL 02/20/25 07:59 Not Given
DAILY RALEIGH
Protocol
Morphine Sulfate 15 mg 01/23/25 00:04 01/24/25 15:59
Morphine 15 Mg Immediate Release Tablet PO 02/06/25 00:03 15 mg
TID RALEIGH Administration
Ondansetron HCl 4 mg 01/23/25 00:04 01/23/25 19:07
Ondansetron 4 Mg/2 Ml Vial IV 02/20/25 00:03 4 mg
Q6HPRN PRN Administration
nausea and vomiting
Oxycodone HCl 5 mg 01/23/25 00:04 01/24/25 12:51
Oxycodone 5 Mg Regular Release Tablet PO 02/06/25 00:03 5 mg
Q4HPRN PRN Administration
moderate pain
Pantoprazole Sodium 40 mg 01/23/25 08:00 01/24/25 08:40
Pantoprazole 40 Mg Delayed Release Tablet PO 02/20/25 07:59 40 mg
DAILY RALEIGH Administration
Polyethylene Glycol 17 grams 01/23/25 00:04
Polyethylene Glycol Powder 17 Grams Packet PO 02/20/25 00:03
DAILYPRN PRN
constipation
Prednisone 40 mg 01/23/25 08:00 01/24/25 13:52
Prednisone 20 Mg Tablet PO 02/20/25 07:59 Not Given
DAILY RALEIGH
Propranolol HCl 10 mg 01/23/25 00:04 01/24/25 12:52
Propranolol 10 Mg Regular Release Tablet PO 02/20/25 00:03 10 mg
QID RALEIGH Administration
Senna/Docusate Sodium 1 tablet 01/23/25 00:04
Docusate W/Senna (Nirmala-Colace) Tablet PO 02/20/25 00:03
BIDPRN PRN
constipation
Sodium Chloride 0 flush 01/22/25 21:00
Sodium Chloride 0.9% (Flush) Syringe IV 02/19/25 20:59
PER PROTOCOL RALEIGH
Home Medications
�Medication �Instructions �Recorded
acetaminophen 325 mg tablet 650 mg PO TID mild pain 01/11/25
(Tylenol)
gabapentin 100 mg capsule 200 mg PO HS Neurological Condition 01/11/25
morphine 15 mg immediate release 15 mg PO TID serve pain 01/11/25
tablet
propranolol 10 mg tablet 10 mg PO QID Mitral Valve Prolapse 01/11/25
ibuprofen 600 mg tablet 600 mg PO TID #10 tabs 01/15/25
lidocaine 4 % topical patch 1 patch topical DAILY Apply to 01/15/25
back of neck #10 ea
oxycodone 5 mg tablet 5 mg PO Q6H PRN Sev pain #15 tabs 01/15/25
prednisone 20 mg tablet 40 mg (2 x 20 mg) PO DAILY #6 tabs 01/15/25
[2025-01-24 18:34] LABS: Spinal Fluid Granulocytes 20 %; Spinal Fluid Lymphocytes 60 %; Spinal Fluid Macrophages 20 %
[2025-01-24] MEDS: NEURONTIN 200 MG PO (22:03)
[2025-01-24 23:23] VITALS: BP 131/66
[2025-01-25] MEDS: TORADOL 15 MG IV ×2 (00:06→19:29)
[2025-01-25] MEDS: TYLENOL 650 MG PO ×5 (04:39→19:28)
[2025-01-25] MEDS: ZOFRAN 4 MG IV (04:48)
[2025-01-25] MEDS: DILAUDID 1 MG IV ×3 (04:48→20:13)
[2025-01-25 07:35] VITALS: BP 113/56
[2025-01-25 07:44] LABS: Hematocrit 33.4 % (37.0-47.0); Hemoglobin 10.9 g/dL (12.0-16.0); Mean Corp Hgb Conc. 32.6 g/dL (33.0-37.0); Mean Corpuscular Volume 96.5 fL (81.0-99.0); Nucleated Red Blood Cells % 0 %; Platelet Count 379 10^3/uL (130-400); Red Cell Dist. Width 12.6 % (11.5-14.5)
[2025-01-25 08:06] LABS: ALT (SGPT) 19 U/L (0-35); AST (SGOT) 15 U/L (14-36); Albumin 3.2 g/dl (3.5-5.0); Alkaline Phosphatase 179 U/L (38-126); Blood Urea Nitrogen 14 mg/dl (7-17); Calcium 8.8 mg/dl (8.4-10.2); Carbon Dioxide 26 mmol/L (22-30); Chloride 104 mmol/L (98-107); Estimated Creatinine Clearance 67 ml/min; Glucose 127 mg/dl (70-99); Potassium 4.4 mmol/L (3.5-5.1); Sodium 132 mmol/L (135-145); Total Protein 5.7 g/dl (6.3-8.2); eGFR > 60.00
[2025-01-25] MEDS: LIDOCAINE 4% PATCH TOPICAL (08:12)
[2025-01-25] MEDS: PROTONIX 40 MG PO (08:13)
[2025-01-25] MEDS: INDERAL 10 MG PO ×4 (08:13→21:05)
[2025-01-25] MEDS: MORPHINE SULFATE 15 MG PO ×3 (08:14→21:01)
[2025-01-25] MEDS: DELTASONE 40 MG PO (09:09)
[2025-01-25 12:28] VITALS: BP 142/72
--- NOTE | 2025-01-25 12:34 | W.PN.ID1 ---
Date of Service
Date of Service: January 25, 2025
Today's Communication
Continue off antibiotics.
Assessment / Plan
Severe Headache and Neck Pain - subacute
- pain has been present over 1 month, no james photophobia or difficulty flexing the neck
- no fevers, chills
- blood cultures : NGTD
- leukocytosis; improved
- CSF analysis without pleocytosis.
No apparent [employer] infection at present.
Little more to offer from a Infectious Diseases standpoint.
Will see again at your request.
Chief Complaint
-: Other (Headache)
Subjective / Review of Systems
Patient seen and examined. Notes ongoing headache at this time. Reports that the pain travels from the base of her neck over her skull to the front of her head.
Review of Systems: No Fever
Vital Signs / Physical Exam
Vital Signs
Vital Signs
Temp Pulse Resp BP Pulse Ox
98.6 F 66 16 142/72 99
01/25/25 07:35 01/25/25 12:28 01/25/25 12:28 01/25/25 12:28 01/25/25 12:28
Physical Exam
Constitutional: Other (Patient appears in mild discomfort secondary to headache.)
Head: Normocephalic
Eyes: No Conjunctival Hemorrhage; Negative Sclera Anicteric
Cardiovascular: S1/S2; Negative S3/S4
Pulmonary: Negative Wheezes or Rales
Gastrointestinal: Soft and Non Tender
Neurological: Awake and Alert
Psychological: Calm
Objective Data
Lab Data
Lab Results
01/25/25 07:28
01/25/25 07:28
ESR 61 mm/hour (0-20) H 01/22/25 17:04
PT 13.2 Sec (11.4-14.6) 01/24/25 08:34
INR 0.97 01/24/25 08:34
Estimated Creat Clear 67 ml/min 01/25/25 07:28
Total Bilirubin 0.4 mg/dl (0.2-1.3) 01/25/25 07:28
AST 15 U/L (14-36) 01/25/25 07:28
ALT 19 U/L (0-35) 01/25/25 07:28
Alkaline Phosphatase 179 U/L (38-126) H 01/25/25 07:28
C-Reactive Protein 76.30 mg/L (0.0-10.00) H 01/22/25 17:03
Most recent labs reviewed.
Micro Results:
01/24/25 14:25 CSF Culture - Preliminary
Csf No Growth After 18-24 Hours
Gram Stain - Preliminary
01/23/25 20:31 Blood Culture - Preliminary
Blood/Venous No Growth in 24 hours- Final report to follow
01/23/25 19:22 Blood Culture - Preliminary
Blood/Venous No Growth in 24 hours- Final report to follow
01/24/25 14:25 Meningitis/Encephalitis Panel (PCR) - Final
Csf
01/24/25 14:25 Acid Fast Bacilli Smear - Pending
Csf Acid Fast Bacilli Culture - Pending
Imaging:
01/23/2025 MRI cervical spine: Multilevel mild degenerative changes of the cervical spine without significant spinal canal or neuroforaminal narrowing. Unremarkable appearance of the cervical spinal cord without abnormal enhancement.
01/23/2025 MRI brain: No acute intracranial abnormality noted. No discrete lesion of the bilateral cerebellopontine angle/internal auditory canals.
--- NOTE | 2025-01-25 14:52 | W.PN.HOSP.TC ---
Today's Communication/Plan
-
see note
Assessment / Plan
Assessment / Plan
69-year-old female with past medical history significant for chronic back pain, narcotics dependence which she uses for lumbosacral back pain presented again to the emergency department for persistent headache. Patient was recently admitted with
similar symptoms and was diagnosed with cervical radiculopathy and cervical paraspinal muscle strain. She did have an MRI of the C-spine at that time which showed muscle strain/inflammation in the paraspinal muscles at the base of the skull. She was
managed with IV Toradol and Dilaudid with supportive therapy and Prednisone. She did improve and was transition to a short course of oral oxycodone and a regular morphine dose. She was instructed to follow-up with orthopedic surgeon for point
injection at the base of the skull. However patient did not make any follow-up appointment and when discharge medications ran out she started having pain again. She reports the pain is sharp pain that starts at the base of the skull and radiates to
the vertex, behind the eyes, and posterior auricular areas bilaterally. No known exacerbating or relieving factors. She has not been able to tolerate p.o. secondary to the pain. She denied any focal logical deficits. She denied any nausea or
vomiting. She denied having any fevers or chills. She denied any vision changes. She reported that the pain started about a month prior after an episode of sore throat for which she was treated with Z-Romero. In the emergency department, she was
afebrile, blood pressure was 106/64 with a pulse of 71 bpm and she was saturating 95% on room air. White count was 17.6 with hemoglobin 14.5 and a plate count of 570. Electrolyte BUN/creatinine were normal. She does have persistently elevated
inflammatory markers with a ESR of 63 and a CRP of 76. She had a CT of the head and sinuses which shows no acute inflammation of the sinuses. Emphysematous changes noted in the lung apices. She had a CT of the head and neck which was negative for
dissection, no evidence of significant carotid atherosclerotic narrowing nor other findings.
1. Intractable neck pain
-Clinically behaving like cervicogenic headache with pain radiating from neck up to the scalp
-Repeat MRI brain/C-spine with and without count did not show any new abnormality, some changes of degenerative spine disease
-CRP elevated, although no signs concerning of vertebral osteomyelitis
-Neurology evaluated and recommended LP -no signs of infection/meningitis
-Patient has been resumed back on regimen of IV Dilaudid/oxycodone with scheduled home morphine
-Toradol also added to regimen
2. Leukocytosis
-Stable, reactive versus steroid use related
-Patient had concern of sinusitis although sinus CT scan did not suggest anything
-Infection disease physician evaluated and recommended monitoring off of antibiotics
3. Abdominal pain
-Abdominal x-ray did not show any signs of obstruction
-Possible gastritis with NSAID use? Maintained on pantoprazole
-Further testing if patient has recurrent abdominal pain issues
4. Neuropathy
- Continue nighttime gabapentin
5. Essential Hypertension
- propranolol 10 mg 4 times daily
DVT prophylaxis -SCDs
Code status - Full code
I have contacted primary pain specialist for callback and discussion regarding potential nerve block at cervical area. If possible patient can be likely be discharged with pain medication regimen
Anticipated Discharge: Within 24 hours
Subjective/Interval History
-
Date of Service: January 25, 2025
Continues to complain neck pain going up the scalp
No other reported problems
Objective Data
-
Labs:
Laboratory Results
01/25/25
07:28
WBC 12.5 H
Hgb 10.9 L
Hct 33.4 L
Plt Count 379
Sodium 132 L
Potassium 4.4
Chloride 104
Carbon Dioxide 26
BUN 14
Creatinine 0.6
Glucose 127 H
Calcium 8.8
Total Bilirubin 0.4
AST 15
ALT 19
Alkaline Phosphatase 179 H
Vital Signs:
Vital Signs
Temp Pulse Resp BP Pulse Ox
98.6 F 66 16 142/72 99
01/25/25 07:35 01/25/25 12:28 01/25/25 12:28 01/25/25 12:28 01/25/25 12:28
I&O
01/24/25 01/25/25 01/26/25
06:59 06:59 06:59
Intake Total 480 / 480 960 / 960
Balance 480 / 480 960 / 960
Review of Systems
-
Respiratory: Reports No Symptoms
Cardiac: Reports No Symptoms
Abdomen/GI: Reports No Symptoms
Physical Exam
-
General: No Apparent Distress and Comfortable
Musculoskeletal: No Edema
Neuro: Awake, Alert, Oriented, No Motor Deficits and Nonfocal/Grossly Intact
Psych: Calm
[2025-01-25 15:55] VITALS: BP 119/59
[2025-01-25 18:52] LABS: ANA, IgG Reflex to HEp-2 None Detected (None Detected)
[2025-01-25] MEDS: NEURONTIN 200 MG PO (21:01)
[2025-01-25] MEDS: TYLENOL PO (23:41)
[2025-01-25 23:46] VITALS: BP 140/63
[2025-01-26] MEDS: ZOFRAN 4 MG IV ×2 (03:51→14:20)
[2025-01-26] MEDS: TORADOL 15 MG IV ×2 (03:51→13:29)
[2025-01-26] MEDS: TYLENOL 650 MG PO ×5 (03:52→19:29)
[2025-01-26] MEDS: DILAUDID 1 MG IV ×2 (04:39→10:07)
[2025-01-26 07:30] VITALS: BP 139/78
[2025-01-26] MEDS: MORPHINE SULFATE 15 MG PO ×3 (07:34→21:11)
[2025-01-26] MEDS: PROTONIX 40 MG PO (07:34)
[2025-01-26] MEDS: DELTASONE 40 MG PO (07:34)
[2025-01-26] MEDS: INDERAL 10 MG PO ×4 (07:34→21:13)
[2025-01-26] MEDS: ROXICODONE 5 MG PO (07:34)
[2025-01-26] MEDS: LIDOCAINE 4% PATCH 1 PATCH TOPICAL (07:35)
[2025-01-26 07:59] LABS: Hematocrit 37.3 % (37.0-47.0); Hemoglobin 12.7 g/dL (12.0-16.0); Mean Corp Hgb Conc. 34.0 g/dL (33.0-37.0); Mean Corpuscular Volume 90.5 fL (81.0-99.0); Nucleated Red Blood Cells % 0 %; Platelet Count 474 10^3/uL (130-400); Red Cell Dist. Width 12.5 % (11.5-14.5)
[2025-01-26 08:46] LABS: ALT (SGPT) 36 U/L (0-35); AST (SGOT) 25 U/L (14-36); Albumin 3.7 g/dl (3.5-5.0); Alkaline Phosphatase 235 U/L (38-126); Blood Urea Nitrogen 11 mg/dl (7-17); Calcium 9.1 mg/dl (8.4-10.2); Carbon Dioxide 28 mmol/L (22-30); Chloride 99 mmol/L (98-107); Estimated Creatinine Clearance 67 ml/min; Glucose 115 mg/dl (70-99); Potassium 5.2 mmol/L (3.5-5.1); Sodium 133 mmol/L (135-145); Total Protein 6.3 g/dl (6.3-8.2); eGFR > 60.00
--- NOTE | 2025-01-26 12:38 | W.PN.HOSP.TC ---
Today's Communication/Plan
-
For cervical CAMILLE tomorrow
Increase oral pain medication
Assessment / Plan
Assessment / Plan
69-year-old female with past medical history significant for chronic back pain, narcotics dependence which she uses for lumbosacral back pain presented again to the emergency department for persistent headache. Patient was recently admitted with
similar symptoms and was diagnosed with cervical radiculopathy and cervical paraspinal muscle strain. She did have an MRI of the C-spine at that time which showed muscle strain/inflammation in the paraspinal muscles at the base of the skull. She was
managed with IV Toradol and Dilaudid with supportive therapy and Prednisone. She did improve and was transition to a short course of oral oxycodone and a regular morphine dose. She was instructed to follow-up with orthopedic surgeon for point
injection at the base of the skull. However patient did not make any follow-up appointment and when discharge medications ran out she started having pain again. She reports the pain is sharp pain that starts at the base of the skull and radiates to
the vertex, behind the eyes, and posterior auricular areas bilaterally. No known exacerbating or relieving factors. She has not been able to tolerate p.o. secondary to the pain. She denied any focal logical deficits. She denied any nausea or
vomiting. She denied having any fevers or chills. She denied any vision changes. She reported that the pain started about a month prior after an episode of sore throat for which she was treated with Z-Romero. In the emergency department, she was
afebrile, blood pressure was 106/64 with a pulse of 71 bpm and she was saturating 95% on room air. White count was 17.6 with hemoglobin 14.5 and a plate count of 570. Electrolyte BUN/creatinine were normal. She does have persistently elevated
inflammatory markers with a ESR of 63 and a CRP of 76. She had a CT of the head and sinuses which shows no acute inflammation of the sinuses. Emphysematous changes noted in the lung apices. She had a CT of the head and neck which was negative for
dissection, no evidence of significant carotid atherosclerotic narrowing nor other findings.
1. Intractable neck pain
-Clinically behaving like cervicogenic headache with pain radiating from neck up to the scalp
-Repeat MRI brain/C-spine with and without count did not show any new abnormality, some changes of degenerative spine disease
-CRP elevated, although no signs concerning of vertebral osteomyelitis
-Neurology evaluated and recommended LP -no signs of infection/meningitis
- Patient has been resumed back on regimen of IV Dilaudid/oxycodone with scheduled home morphine. Dose of oxycodone increased
- Contacted patient primary pain specialist Dr. Reilly's office and patient is planned to be seen in office next week
- Discussed with [facility] and patient will get a cervical CAMILLE tomorrow
2. Leukocytosis -ongoing
-Stable, reactive versus steroid use related
-Patient had concern of sinusitis although sinus CT scan did not suggest anything
-Infection disease physician evaluated and recommended monitoring off of antibiotics
3. Abdominal pain -resolved
-Abdominal x-ray did not show any signs of obstruction
-Possible gastritis with NSAID use? Maintained on pantoprazole
-Further testing if patient has recurrent abdominal pain issues
4. Neuropathy
- Continue nighttime gabapentin
5. Essential Hypertension
- propranolol 10 mg 4 times daily
DVT prophylaxis -SCDs
Code status - Full code
Anticipated Discharge: 24 - 48 hours
Subjective/Interval History
-
Date of Service: January 26, 2025
Continues to have neck pain
Denies nausea/constipation
Objective Data
-
Labs:
Laboratory Results
01/26/25
07:32
WBC 15.8 H
Hgb 12.7
Hct 37.3
Plt Count 474 H D
Sodium 133 L
Potassium 5.2 H
Chloride 99
Carbon Dioxide 28
BUN 11
Creatinine 0.6
Glucose 115 H
Calcium 9.1
Total Bilirubin 0.6
AST 25
ALT 36 H
Alkaline Phosphatase 235 H
Vital Signs:
Vital Signs
Temp Pulse Resp BP Pulse Ox
97.5 F 72 16 139/78 97
01/26/25 07:30 01/26/25 07:30 01/26/25 07:30 01/26/25 07:30 01/26/25 07:30
I&O
01/25/25 01/26/25 01/27/25
06:59 06:59 06:59
Intake Total 960 / 960 240 / 240
Balance 960 / 960 240 / 240
Review of Systems
-
Respiratory: Reports No Symptoms
Cardiac: Reports No Symptoms
Abdomen/GI: Reports No Symptoms
Physical Exam
-
General: No Apparent Distress and Comfortable
Musculoskeletal: No Edema
Neuro: Awake, Alert, Oriented, No Motor Deficits and Nonfocal/Grossly Intact
Psych: Calm
[2025-01-26] MEDS: ROXICODONE 10 MG PO (14:21)
--- NOTE | 2025-01-26 15:08 | PN.CDI ---
CDI
- -
CDI:
Physician Documentation Request
Admit Date: 01/25/25 14:57
Dear Doctor,
Patient admitted for neck pain.
Laboratory Tests
01/22/25 01/23/25 01/24/25
17:03 05:54 08:08
Sodium 134 L 130 L 133 L
01/25/25 01/26/25
07:28 07:32
Sodium 132 L 133 L
Based on the above, could you clarify in the progress notes, the appropriate diagnosis, if significant, that supports the above abnormalities and additional evaluation, monitoring and/or treatment rendered:
Hyponatremia
Abnormal lab value insignificant
Other
Use of terms such as suspected, likely, concern for, or probable (associated with a specific diagnosis that is being evaluated, monitored, or treated as if it exists) are acceptable and can be coded in the inpatient setting, when documented at the
time of discharge.
Thank you,
Mitzi Beard RN, BSN
CDI Specialist
Available via [employer] text
Please use your independent medical judgment in providing your response.
[2025-01-26 15:36] VITALS: BP 111/71
[2025-01-26 15:47] LABS: SSA 52 (Ro)(ENA) Ab, IgG 2 AU/mL (0-40); SSA 60 (Ro)(ENA) Ab, IgG 0 AU/mL (0-40); SSB (La)(ENA) Ab, IgG 4 AU/mL (0-40)
--- NOTE | 2025-01-26 16:03 | CM ---
Chart reviewed. Care ongoing.
For cervical CAMILLE tomorrow
CM will cont to follow for d/c planning
Plan: Home, no needs anticipated
[2025-01-26] MEDS: MIRALAX 17 GRAMS PO (16:19)
[2025-01-26] MEDS: ROXICODONE 15 MG PO (19:28)
[2025-01-26] MEDS: NEURONTIN 200 MG PO (21:10)
[2025-01-26 23:16] VITALS: BP 125/58
[2025-01-26] MEDS: TYLENOL PO (23:25)
[2025-01-27] MEDS: ROXICODONE 15 MG PO ×2 (01:35→10:18)
[2025-01-27] MEDS: DILAUDID 0.25 MG IV ×2 (02:06→14:48)
[2025-01-27] MEDS: TYLENOL 650 MG PO ×5 (03:11→19:27)
[2025-01-27] MEDS: ROXICODONE 10 MG PO ×2 (03:47→19:27)
[2025-01-27 07:47] VITALS: BP 109/47
[2025-01-27] MEDS: DELTASONE 40 MG PO (08:08)
[2025-01-27] MEDS: PROTONIX 40 MG PO (08:08)
[2025-01-27] MEDS: MORPHINE SULFATE 15 MG PO ×3 (08:08→21:59)
[2025-01-27] MEDS: INDERAL 10 MG PO ×4 (08:09→21:58)
[2025-01-27] MEDS: LIDOCAINE 4% PATCH TOPICAL (08:14)
--- NOTE | 2025-01-27 11:53 | W.PN.HOSP.TC ---
Addendum entered and electronically signed by Van Chávez MD 01/28/25 14:11:
Around diagnosis list
Hyponatremia
Original Note:
Today's Communication/Plan
-
Continue current pain medication
For cervical CAMILLE today
Assessment / Plan
Assessment / Plan
69-year-old female with past medical history significant for chronic back pain, narcotics dependence which she uses for lumbosacral back pain presented again to the emergency department for persistent headache. Patient was recently admitted with
similar symptoms and was diagnosed with cervical radiculopathy and cervical paraspinal muscle strain. She did have an MRI of the C-spine at that time which showed muscle strain/inflammation in the paraspinal muscles at the base of the skull. She was
managed with IV Toradol and Dilaudid with supportive therapy and Prednisone. She did improve and was transition to a short course of oral oxycodone and a regular morphine dose. She was instructed to follow-up with orthopedic surgeon for point
injection at the base of the skull. However patient did not make any follow-up appointment and when discharge medications ran out she started having pain again. She reports the pain is sharp pain that starts at the base of the skull and radiates to
the vertex, behind the eyes, and posterior auricular areas bilaterally. No known exacerbating or relieving factors. She has not been able to tolerate p.o. secondary to the pain. She denied any focal logical deficits. She denied any nausea or
vomiting. She denied having any fevers or chills. She denied any vision changes. She reported that the pain started about a month prior after an episode of sore throat for which she was treated with Z-Romero. In the emergency department, she was
afebrile, blood pressure was 106/64 with a pulse of 71 bpm and she was saturating 95% on room air. White count was 17.6 with hemoglobin 14.5 and a plate count of 570. Electrolyte BUN/creatinine were normal. She does have persistently elevated
inflammatory markers with a ESR of 63 and a CRP of 76. She had a CT of the head and sinuses which shows no acute inflammation of the sinuses. Emphysematous changes noted in the lung apices. She had a CT of the head and neck which was negative for
dissection, no evidence of significant carotid atherosclerotic narrowing nor other findings.
1. Intractable neck pain
-Clinically behaving like cervicogenic headache with pain radiating from neck up to the scalp
-Repeat MRI brain/C-spine with and without count did not show any new abnormality, some changes of degenerative spine disease
-CRP elevated, although no signs concerning of vertebral osteomyelitis
-Neurology evaluated and recommended LP -no signs of infection/meningitis
- Patient has been resumed back on regimen of IV Dilaudid/oxycodone with scheduled home morphine. Dose of oxycodone increased
- Contacted patient primary pain specialist Dr. Reilly's office and patient is planned to be seen in office next week
- [facility] is planning to do an cervical CAMILLE today
2. Leukocytosis -ongoing
-Stable, reactive versus steroid use related
-Patient had concern of sinusitis although sinus CT scan did not suggest anything
-Infection disease physician evaluated and recommended monitoring off of antibiotics
3. Abdominal pain -resolved
-Abdominal x-ray did not show any signs of obstruction
-Possible gastritis with NSAID use? Maintained on pantoprazole
-Further testing if patient has recurrent abdominal pain issues
4. Neuropathy
- Continue nighttime gabapentin
5. Essential Hypertension
- propranolol 10 mg 4 times daily
DVT prophylaxis -SCDs
Code status - Full code
Anticipated Discharge: Within 24 hours
Subjective/Interval History
-
Date of Service: January 27, 2025
Continues to complain neck pain
Remains tearful
No new issues reported
Objective Data
-
Vital Signs:
Vital Signs
Temp Pulse Resp BP Pulse Ox
98.4 F 59 16 109/47 94
01/27/25 07:47 01/27/25 08:09 01/27/25 07:47 01/27/25 08:09 01/27/25 07:47
I&O
01/26/25 01/27/25 01/28/25
06:59 06:59 06:59
Intake Total 240 / 240 480 / 480
Balance 240 / 240 480 / 480
Review of Systems
-
Respiratory: Reports No Symptoms
Cardiac: Reports No Symptoms
Abdomen/GI: Reports No Symptoms
Physical Exam
-
General: No Apparent Distress and Comfortable
Musculoskeletal: No Edema
Neuro: Awake, Alert, Oriented, No Motor Deficits and Nonfocal/Grossly Intact
Psych: Calm
[2025-01-27 15:10] VITALS: BP 123/61; BP_SYST 64
[2025-01-27 16:21] VITALS: BP 128/64; BP_SYST 58
[2025-01-27 17:20] VITALS: BP 103/58
[2025-01-27] MEDS: NEURONTIN 200 MG PO (21:59)
[2025-01-27 23:09] VITALS: BP 129/60
[2025-01-27] MEDS: TYLENOL PO (23:09)
[2025-01-28] MEDS: DILAUDID 0.25 MG IV (00:43)
[2025-01-28] MEDS: ROXICODONE 15 MG PO ×2 (01:18→11:33)
[2025-01-28] MEDS: TYLENOL 650 MG PO ×3 (04:53→11:34)
[2025-01-28] MEDS: ROXICODONE 10 MG PO (04:53)
[2025-01-28 07:30] VITALS: BP 138/69
[2025-01-28] MEDS: LIDOCAINE 4% PATCH 1 PATCH TOPICAL (08:16)
[2025-01-28] MEDS: INDERAL 10 MG PO (08:16)
[2025-01-28] MEDS: MORPHINE SULFATE 15 MG PO (08:16)
[2025-01-28] MEDS: PROTONIX 40 MG PO (08:16)
[2025-01-28] MEDS: DELTASONE 40 MG PO (08:16)
[2025-01-28 11:29] VITALS: BP 137/64
--- NOTE | 2025-01-28 12:21 | W.DCSUMMARY ---
Discharge Summary
Discharge Data
Date of Admission: 01/25/25
Date of Discharge: 01/28/25
-
Pending Results: No
Hospital Course
Discharging Physician : Dr Van Chávez
Disposition : To home
Primary care physician : Dr Dwayne Zimmerman
Principal Discharge diagnosis :
Intractable neck pain
Cervicogenic headache
Leukocytosis from steroids use
Chronic Discharge diagnosis :
Lumbar spinal degenerative joint disease neuropathy
Neuropathy
Essential hypertension
Physical examination:
HEENT: no neck rigidity
Chest: Clear to auscultation
Heart: N s1/s2, RRR, no murmur
Abd: N BS, soft, nontender,
Neuro: No motor or sensory deficits
Ext: No edema
Hospital Course :
Patient is a 69-year-old female with above-mentioned past medical history came back to the hospital for nonimprovement/intractable upper neck pain and cervicogenic headache. Patient was discharged last week after symptomatic care and was
recommended to follow-up with orthopedic/spinal surgery in the office, although patient contacted the outpatient office and patient was not able to be seen in time. Patient ran out of her prescribed pain medication and came to ER for continual of
pain. Neurology and infectious disease physicians were involved in care at admission as there was question of this being possibly meningitis. An LP was done and meningitis was ruled out. Repeat MRI brain/C-spine was done and did not show any new
issues. Case was discussed with interventional radiology as patient was not improving despite high doses of pain medication and all supportive measures. Patient ended up getting cervical epidural steroid injection after which patient had rapid
improvement in pain. Patient was discharged again with a short prescription of narcotics. Patient is also planned to follow-up with pain specialist in the office and may require more localized tender point injection. I have personally called pain
specialist office and are aware of the patient condition.
Important imaging findings :
None
Procedure findings :
None
Discharge Plan
-
Patient Disposition: Home (Routine Discharge)
Discharge Diagnosis/Procedures: Cervicogenic headache, Neck OA
Condition: Fair
Diet: Regular
Activity: As tolerated
Driving Restrictions: As prior to admission
Bathing Restrictions: OK to Shower
Referrals:
Dwayne Zimmerman MD [Family Provider, Internal Medicine] - in one week
Prescriptions:
New
polyethylene glycol 3350 17 gram Powder In Packet
17 g PO DAILYPRN PRN (Reason: constipation) Qty: 30 0RF
oxycodone 10 mg tablet
10 mg PO Q8H PRN (Reason: Breakthrough pain) Qty: 14 0RF
Continued
morphine 15 mg Tablet
15 mg PO TID
acetaminophen [Tylenol] 325 mg Tablet
650 mg PO TID
propranolol 10 mg Tablet
10 mg PO QID
gabapentin 100 mg Capsule
200 mg PO HS
lidocaine 4 % Adhesive Patch,Medicated
1 patch topical DAILY Qty: 10 0RF
Discontinued
oxycodone 5 mg tablet
5 mg PO Q6H PRN (Reason: Sev pain) Qty: 15 0RF
Rx Instructions:
Take half table for mod pain
ibuprofen 600 mg tablet
600 mg PO TID Qty: 10 0RF
Rx Instructions:
DO NOT TAKE MORE THEN 3 DAYS
prednisone 20 mg tablet
40 mg PO DAILY Qty: 6 0RF
Discharge Orders:
Discharge Patient (As Directed); Ordered 01/28/25
Ordered By: Van Chávez
Discharge Date and Time
Print Language: BAHAMIAN
[2025-01-28 13:44] LABS: CSF VDRL (T. pallidum) Non Reactive (Non Reactive)
== END 2025-01-28 12:28 | disposition home or self-care (01) | DRG 103 ==
LOC: 4 EAST ACU 14:57
PROVIDERS: Hospitalist; Radiology Vascular & Interventional Radiology; Registered Nurse; Registered Nurse Critical Care Medicine; ADMITTING PHYSICIAN Internal Medicine; ATTENDING PHYSICIAN Hospitalist; CONSULT PHYSICIAN Psychiatry & Neurology Neurology; CONSULT PHYSICIAN Student in an Organized Health Care Education/Training Program; EMERGENCY PHYSICIAN Emergency Medicine; FAMILY PHYSICIAN Internal Medicine
PROC: B01B1ZZ Fluoroscopy of Spinal Cord using Low Osmolar Contrast (ICD-10-PCS; 2025-01-24)
PROC: 009U3ZX Drainage of Spinal Canal, Percutaneous Approach, Diagnostic (ICD-10-PCS; 2025-01-24)
PROC: 3E0R33Z Introduction of Anti-inflammatory into Spinal Canal, Percutaneous Approach (ICD-10-PCS; 2025-01-27)
PROC: 3E0R3BZ Introduction of Anesthetic Agent into Spinal Canal, Percutaneous Approach (ICD-10-PCS; 2025-01-27)
DX: G44.86 Cervicogenic headache (principal); F11.20 Opioid dependence, uncomplicated; E87.1 Hypo-osmolality and hyponatremia; M47.22 Other spondylosis with radiculopathy, cervical region; M54.50 Low back pain, unspecified; G89.4 Chronic pain syndrome; I10 Essential (primary) hypertension; G62.9 Polyneuropathy, unspecified; R59.1 Generalized enlarged lymph nodes; T38.0X5A Adverse effect of glucocorticoids and synthetic analogues, initial encounter; Y92.9 Unspecified place or not applicable; Z79.899 Other long term (current) drug therapy; Z90.49 Acquired absence of other specified parts of digestive tract; Z87.891 Personal history of nicotine dependence; Z82.49 Family history of ischemic heart disease and other diseases of the circulatory system; Z83.3 Family history of diabetes mellitus; Z88.6 Allergy status to analgesic agent; Z88.2 Allergy status to sulfonamides; Z79.52 Long term (current) use of systemic steroids
CPT/HCPCS: 62321; 62328; 70486; 70496; 70498; 70553; 72156; 74018; 80048; 80053; 80306; 80307; 82945; 83690; 84157; 85025; 85027; 85610; 85652; 86038; 86140; 86235; 86430; 86592; 87015; 87040; 87070; 87116; 87205; 87483; 88108; 89051; 96361; 96374; 96375; 99284; A9575; Q9967